=== PATIENT | female | born 1955 | race Caucasian/White ===

== ENCOUNTER 2024-04-19 09:08 | Outpatient (REF) | payer MEDICARE, OTHER, SELFPAY ==
[2024-04-19 14:24] LABS: Influenza A PCR NEGATIVE (Negative); Influenza B PCR NEGATIVE (Negative); Resp Syncy Virus RNA Qual PCR NEGATIVE (Negative); SARS COV2 PCR INHOUSE NEGATIVE (Negative)
== END 2024-04-19 09:09 | disposition home or self-care (01) ==
LOC: HO.LNP 09:08
PROVIDERS: PCP Internal Medicine; Visit Provider Physician Assistant
DX: R06.9 Unspecified abnormalities of breathing (principal)
CPT/HCPCS: 0241U; 87880; 99212

== ENCOUNTER 2024-04-19 09:08 | Outpatient (AMB) | payer MEDICARE, OTHER, SELFPAY ==
--- OUTSIDE RECORDS SUMMARY | 2024-04-19 09:28 | XMS_ITS ---
Author Name [facility] Organization Unknown History of Medication Use Medication Directions Dispensed Refills Start Date End Date [facility] sulfamethoxazole 400 mg-trimethoprim 80 mg tablet TAKE 2 TABLETS BY MOUTH EVERY 12 HOURS FOR 5 DAYS 09/19/2023 active meclizine 25 mg tablet TAKE 1 TABLET BY MOUTH 2 TIMES A DAY NEEDED FOR DIZZINESS. 09/19/2023 active nitrofurantoin monohydrate/macrocryst als 100 mg capsule TAKE 1 CAPSULE BY MOUTH EVERY 12 HOURS WITH FOOD FOR 7 DAYS 09/19/2023 active lorazepam 0.5 mg tablet TAKE 1 TABLET BY ORAL ROUTE 2 TIMES PER DAY NEEDED 09/19/2023 active Premarin 0.625 mg/gram vaginal cream APPLY 0.5 GRAM BY TOPICAL ROUTE ONCE DAILY CYCLICALLY, 3 WEEKS ON AND 1 WEEK OFF 09/19/2023 active sulfamethoxazole 800 mg-trimethoprim 160 mg tablet TAKE 1 TABLET BY MOUTH EVERY 12 HOURS FOR 5 DAYS 09/19/2023 active doxycycline hyclate 100 mg tablet TAKE 1 TABLET (100 MG) BY ORAL ROUTE EVERY 12 HOURS FOR 5 DAYS 09/19/2023 active azithromycin 250 mg tablet TAKE 2 TABLETS BY MOUTH TODAY, THEN TAKE 1 TABLET DAILY FOR 4 DAYS DIRECTED 09/19/2023 active ondansetron HCl 4 mg tablet TAKE 1 TABLET BY MOUTH 2 TIMES A DAY NEEDED FOR NAUSEA. 09/19/2023 active Kenalog 40 mg/mL suspension for injection 02/01/2023 active lidocaine (PF) 10 mg/mL (1 %) injection solution Take 2 mL by injection route. 09/08/2022 completed ondansetron 4 mg disintegrating tablet TAKE 1 TABLET BY MOUTH EVERY 8 HOURS NEEDED FOR NAUSEA 05/08/2023 active Kenalog 40 mg/mL suspension for injection Take 1 mL by injection route. 09/08/2022 completed lidocaine (PF) 10 mg/mL (1 %) injection solution 02/01/2023 active Prolia 60 mg/mL subcutaneous syringe 09/08/2022 acti ve tramadol 50 mg tablet TAKE 1 TABLET BY MOUTH EVERY 4 HOURS NEEDED FOR PAIN 05/08/2023 active fluorouracil 5 % topical cream MIX 50/50 WITH DICLOFENAC GEL AND APPLY DAILY AT BEDTIME X 7 CONSECUTIVE NIGHTS - WASH OFF IN AM 09/08/2022 completed alendronate 70 mg tablet PLEASE SEE ATTACHED FOR DETAILED DIRECTIONS 02/01/2023 active losartan 50 mg-hydrochlorothiazide 12.5 mg tablet TAKE 1/2 TAB BY MOUTH EVERY DAY 09/08/2022 active Asprin Ec Low Dose 81 mg tablet,delayed release Take 1 tablet every day by oral route. 02/01/2023 active lorazepam 1 mg tablet TAKE 1 TABLET BY MOUTH 30 MINUTES BEFORE MRI 09/08/2022 completed hydroxyurea 500 mg capsule TAKE 3 CAPSULES BY MOUTH EVERY DAY 09/08/2022 active diclofenac 1 % topical gel MIX WITH THE FLUOURACIL 50/50 AND APPLY TO AFFECTED AREAS AT BEDTIME WASH OFF IN AM X 7DAYS TO FACE 09/08/2022 completed simvastatin 20 mg tablet TAKE 1 TABLET BY MOUTH EVERY DAY IN THE EVENING 09/08/2022 active amoxicillin 500 mg capsule TAKE 4 PILLS ONE HOUR PRIOR TO DENTAL WORK. 09/08/2022 active Eliquis 2.5 mg tablet TAKE 1 TABLET BY MOUTH TWICE A DAY FOR BLOOD CLOT PREVENTION 05/08/2023 active Problems Problem Status Onset Date Problem Type Date of Resoluti on Source Osteoarthritis of right knee joint active 2022-09-05 ProblemAct [facility] Pain of right knee joint active 2023-05-06 ProblemAct [facility] Osteoarthritis of left knee joint active 2022-09-05 ProblemAct [facility] Pain of left knee joint active 2023-05-06 ProblemAct [facility]
--- NOTE | 2024-04-19 09:30 | MHC.OFFWIV ---
Intake Vital Signs 04/19/24 09:32 Height 5 ft 9 in Weight 197 lb BMI 29.1 BP 154/90 H Blood Pressure Location Rt brachial Position Sitting Pulse 82 Pulse Source Pulse Oximeter Temp 98.0 F Temp Source Oral Pulse Oximetry (%) 97 Oxygen Delivery Method Room Air Intake Visit Reasons: EP sore throat, ears, chest heavyness Allergies gabapentin Allergy (Unknown, Verified 04/19/24 09:36) insomnia amoxicillin [Augmentin] Adverse Reaction (Unknown, Verified 04/19/24 09:36) rash clavulanic acid [Augmentin] Adverse Reaction (Unknown, Verified 04/19/24 09:36) rash nitrofurantoin Adverse Reaction (Verified 04/19/24 09:36) eye swells Erythromycin Adverse Reaction (Unknown, Uncoded 04/19/24 09:36) nausea and vomiting keflex Adverse Reaction (Uncoded 04/19/24 09:36) eye itchy HPI HPI Comments History of Present Illness Details Patient is a 68yo F who presents with URI Last onset + cough, ear pain; R side, ST and headache She said everyday she wakes up and feels worse Pt states chest feels heavy; + able to take a deep breath She denies fever but + chills previously She tried tylenol for headache and used OTC Robitussin yesterday No shortness or breath or dizziness Review of Systems Const Denies chills, Denies fever(s) and Reports headache(s) Eyes Denies blurry vision ENT Reports otalgia, Reports headache(s), Reports nasal congestion, Reports nasal discharge, Reports sore throat and Denies throat swelling Card Denies chest pain, Denies syncope and Denies dyspnea Resp Reports cough, Denies hemoptysis and Denies dyspnea Neuro Denies syncope and Reports headache(s) Aller/Immun Denies throat swelling Physical Exam Vital Signs: Last Vital Signs Temp 98.0 F 04/19/24 09:32 Pulse 82 04/19/24 09:32 BP 154/90 H 04/19/24 09:32 Pulse Ox 97 04/19/24 09:32 Oxygen Delivery Method Room Air 04/19/24 09:32 BMI result Body Mass Index 29.1 General: Non-toxic, NAD. Speaking full sentences. Skin: Warm dry throughout Eye: EOMI HENT: Airway patent. Uvula midline. No pharyngeal erythema or edema. No MANAGER OF TRANSPORTATION. Bilateral canals clear. Slight fluid behind R TM but TM non-erythematous, non-bulging. No TM perforation or hemotympanum noted. Respiratory: CTA bilaterally. No wheezes, rales or rhonchi. + dry cough on exam Cardiac: RRR. No murmur MSK: Full ROM extremities. Neurology:Alert. No aphasia or facial droop. Gait without abnormality Psych: Good mood and affect Results AMB Rapid Strep AMB Rapid Strep Negative Last Edit by Veda Hood CMA on 04/19/24 09:55 Results Reviewed Results Reviewed: Laboratory Last Values Strep Scn [facility] Clinic Negative 04/19/24 09:54 Assessment & Plan Assessment & Plan (1) Upper respiratory infection: Code(s): J06.9 - Acute upper respiratory infection, unspecified Qualifiers: URI type: unspecified viral URI Qualified Code(s): J06.9 - Acute upper respiratory infection, unspecified Plan: Patient seen and evaluated. Strep negative Lungs CTA Tessalon for cough COVID/Flu/RSV ordered Patient gave verbal understanding and had no additional questions or concerns at time of discharge All questions answered Orders: Orders AMB Rapid Strep Screen Today Z13.9 - Encounter for screening, unspecified SARS-CoV2/FLU/RSV Today J06.9 - Acute upper respiratory infection, unspecified Medications: New benzonatate 200 mg PO BID-TID PRN 20 caps 0RF cough Coding Level of Care Code Est Pt Level 3 (83779) Diagnoses Viral upper respiratory tract infection J06.9 URI type: unspecified viral URI
[2024-04-19 09:32] VITALS: BP 154/90; PULSE 82; TEMP 36.7; O2SAT 97; BMI 29.1
== END 2024-04-19 09:57 | disposition home or self-care (01) ==
PROVIDERS: PCP Internal Medicine; Visit Provider Physician Assistant
DX: Z13.9 Encounter for screening, unspecified (principal); J06.9 Acute upper respiratory infection, unspecified

== ENCOUNTER 2024-05-06 10:02 | Outpatient (REF) | payer MEDICARE, OTHER, SELFPAY ==
--- OUTSIDE RECORDS SUMMARY | 2024-05-06 15:24 | XMS_ITS | Data Portability ---
Author Organization [place] [facility] [place] Address [address] [place] [address] Care Team Providers Care Dye Range Feeder Name Role Phone ALEJANDRA KHOURY Primary Care Provider ALEJANDRA KHOURY Primary Care Provider [phone] Assessment Encounter Date Assessment Date Assessment LastModified by Organization Details LastModified Time 09/05/2022 09/05/2022 Pleasant 67-year-old female bilateral knee pain due to patellofemoral syndrome and osteoarthritis. I had a discussion with the patient regarding management at today's visit. She for bilateral cortisone injections of the knees. After verbal consent was obtained. The procedures were carried out bilaterally and independently. She tolerated the procedures well. Aftercare instructions were discussed in detail. Indirect care and treatment in conjunction with Dr. Saucedo Additional treatment plan discussed with the patient in detail included the following; - Provider focused nonsteroidal anti-inflammatory regimen (discussed were the pros, cons, benefits and risks as well as any black box warnings) in patients over 60 years old they should be very cautious in taking these medications due to potential decreased kidney function and or elevated blood pressure. - Analgesic pain medication for pain suppression (discussed were the pros, cons, benefits and risks as well as any black box warnings) - The use of topical pain relieving medication were discussed - The use of ice to decrease inflammation and pain - The use of assistive ambulatory devices for ambulation and fall prevention - Formal specific guided physical therapy program I reviewed my findings at length with the patient today. ? ? ?We discussed the nature and etiology of this problem along with current treatment options. We discussed the expected course and outcomes and what to expect. We also discussed risks and benefits. ? ? ? All of their questions were answered today, and there was exhibited understanding and comprehension of all that was discussed. Time Spent: 10 minutes were spent reviewing previous imaging and charting. ? ? ?10 minutes were spent obtaining patient history. ? ? ?5 minutes were spent on physical exam. ? ? ?5? ? ?minutes were spent explaining diagnosis and assessment. Today's documentation was made using voice recognition software. This note may contain grammatical errors secondary to the software. Not available 09/05/2022 07:42:49 01/28/2023 01/28/2023 Pleasant 67-year-old female with degenerative arthritis of both knees for which she gets good relief with cortisone injection. She is not interested in alternatives such as surgery. She opted for bilateral injections of the knees at today's visit. After verbal consent was granted by patient. The procedures were carried out. She tolerated this well. Aftercare instructions were discussed in detail. Like to see her back in 3 months time for repeat clinical exam. Should her symptoms not improve or worsen she should contact my office. She agrees with above-noted plan I did review her radiographs with her in detail. Indirect care and treatment in conjunction with Dr. Saucedo Additional treatment plan discussed with the patient (only initiated if in boldface font) otherwise not applicable. Treatment may include the following; - Provider focused nonsteroidal anti-inflammatory regimen (discussed were the pros, cons, benefits and risks as well as any black box warnings) in patients over 60 years old they should be very cautious in taking these medications due to potential decreased kidney function and or elevated blood pressure. - Analgesic pain medication for pain suppression (discussed were the pros, cons, benefits and risks as well as any black box warnings) - The use of topical pain relieving medication were discussed - The use of ice to decrease inflammation and pain - The use of assistive ambulatory devices for ambulation and fall prevention - Formal specific guided physical therapy program I reviewed my findings at length with the patient today. ? ? ?We discussed the nature and etiology of this problem along with current treatment options. We discussed the expected course and outcomes and what to expect. We also discussed risks and benefits. ? ? ? All of their questions were answered today, and there was exhibited understanding and comprehension of all that was discussed. Time Spent: 10 minutes were spent reviewing previous imaging and charting. ? ? ?10 minutes were spent obtaining patient history. ? ? ?5 minutes were spent on physical exam. ? ? ?5? ? ?minutes were spent explaining diagnosis and assessment. Today's documentation was made using voice recognition software. This note may contain grammatical errors secondary to the software. Not available 01/29/2023 08:10:11 05/06/2023 05/06/2023 Pleasant 67-year-old female with degenerative arthritis of both knees for which she gets good relief with cortisone injection. She opted for bilateral injections of the knees at today's visit. After verbal consent was granted by patient. The procedures were carried out. She tolerated this well. Aftercare instructions were discussed in detail. Will see her back in 3 months time for repeat clinical exam.. Should her symptoms not improve or worsen she should contact my office. She agrees with above-noted plan I did review her radiographs with her in detail. Patient was seen and evaluated by Amandeep Shaw PA-C in indirect conjuction with Documenting Provider: Jean Saucedo MD . He/She agrees with history, physical examination, tests/diagnostic imaging, and treatment plan. Additional treatment plan discussed with the patient (only initiated if in boldface font) otherwise not applicable. Treatment may include the following; - Provider focused nonsteroidal anti-inflammatory regimen (discussed were the pros, cons, benefits and risks as well as any black box warnings) in patients over 60 years old they should be very cautious in taking these medications due to potential decreased kidney function and or elevated blood pressure. - Analgesic pain medication for pain suppression (discussed were the pros, cons, benefits and risks as well as any black box warnings) - The use of topical pain relieving medication were discussed - The use of ice to decrease inflammation and pain - The use of assistive ambulatory devices for ambulation and fall prevention - Formal specific guided physical therapy program I reviewed my findings at length with the patient today. ? ? ?We discussed the nature and etiology of this problem along with current treatment options. We discussed the expected course and outcomes and what to expect. We also discussed risks and benefits. ? ? ? All of their questions were answered today, and there was exhibited understanding and comprehension of all that was discussed. Time Spent: 10 minutes were spent reviewing previous imaging and charting. ? ? ?10 minutes were spent obtaining patient history. ? ? ?5 minutes were spent on physical exam. ? ? ?5? ? ?minutes were spent explaining diagnosis and assessment. Today's documentation was made using voice recognition software. This note may contain grammatical errors secondary to the software. Not available 05/06/2023 10:31:20 09/17/2023 09/17/2023 68-year-old fema le with osteoarthritis of bilateral knees. At present moment, her symptoms are well-controlled following a recent cortisone injection. Some of her relief may also be the result of a recent right-sided total hip replacement. We have discussed the general nature of osteoarthritis and potential future options. Recommendations are for follow-up on an as-needed basis. This patient was seen and evaluated by Amandeep Martin MS, PA-C in indirect conjunction with documenting/superv ising provider Jean Saucedo MD. He agrees with history, physical examination, tests/diagnostic imaging, and treatment plan. This document was generated using voice recognition software. As a result, there may be unintended spelling, grammatical and/or textual errors. Not available 09/17/2023 11:20:06 Plan of Treatment Reminders Order Date Submit Date Provider Last Modified By Organization Details Last Modified Time Details Appointments None recorded. Lab None recorded. Referral None recorded. Procedures None recorded. Surgeries None recorded. Imaging XR, knee, 4 or more view 2022 023 [facility], [address], [address], [place], [address], 3 12:06:13 XR, knee, 4 or more view 2022 023 [facility], [address], [address], [place], [address], 3 12:06:13 XR, knee, 4 or more view 2023 024 [email or web address] 2 [facility], [address], [address], [place], [address], 4 11:34:21 XR, knee, 4 or more view 2023 024 [email or web address] 2 [facility], [address], [place], [address], 4 11:34:21 Medication Orders Kenalog 40 mg/mL suspension for injection 2022 023 [id number], [address] [place], [address], 3 16:22:53 lidocaine (PF) 10 mg/mL (1 %) injection solution 2022 023 [place] [address] [id number], [address] [place], [address], 3 16:22:54 Kenalog 40 mg/mL suspension for injection 2022 023 [place] [address] [id number], [address] [place] [address], [address], 3 16:22:53 lidocaine (PF) 10 mg/mL (1 %) injection solution 2022 023 [place] [address] [id number], [address] [place], [address], 3 16:22:54 Kenalog 40 mg/mL suspension for injection 2022 023 [facility], [address] [place], [address], 3 12:06:13 lidocaine (PF) 10 mg/mL (1 %) injection solution 2022 023 [facility], [address] [place], [address], 3 12:06:13 Kenalog 40 mg/mL suspension for injection 2022 023 [facility], [address] [place], [address], 3 12:06:13 lidocaine (PF) 10 mg/mL (1 %) injection solution 2022 023 [id number], [address] [facility], [place], [address], 3 12:06:13 Kenalog 40 mg/mL suspension for injection 2023 024 [email or web address] Not available 4 11:26:11 lidocaine (PF) 10 mg/mL (1 %) injection solution 2023 024 [email or web address] Not available 4 11:26:11 Kenalog 40 mg/mL suspension for injection 2023 024 [email or web address] Not available 4 11:26:10 lidocaine (PF) 10 mg/mL (1 %) injection solution 2023 024 [email or web address] Not available 4 11:26:10 Patient TargetsNo targets recorded. Patient Instructions Encounter Date Encounter Id Patient Instructions Last Modified By Organization Details Last Modified Time 09/05/2022 [id number] You have been provided with a cortisone injection in order to reduce the pain and inflammation that you are experiencing. The injection consists of two medications. Cortisone (an anti-inflammatory that will take 48-72 hours to take effect) and Lidocaine (a numbing agent that will last 2-3 hours). Please note that not everyone will have a lasting response following the injection. PATIENT INSTRUCTIONS Once the Lidocaine wears off, you may have an increase in your pain. I recommend icing the affected area for 20 minutes 3-4 times per day. It is recommended that you refrain from any high level activities using the joint or limb that was injected for approximately 24-48 hours. Normal day-to-day activities are generally not a problem. POSSIBLE SIDE EFFECTS Individuals with dark complexions may experience some skin discoloration locally at the site of the injection. There is the possibility of an increase in discomfort within 48 hours following the injection. This is called a ? f lare? . To help minimize the chances of this, please see the post-injection instructions above. There is a less than 1% chance of an infection. If you notice any signs of infection (redness, warmth, drainage, fever greater than 100 degrees) please call our office or contact us through the portal [facility]ESS[facility]. Not available 09/05/2022 10:35:22 01/28/2023 [id number] You have been provided with a cortisone injection in order to reduce the pain and inflammation that you are experiencing. The injection consists of two medications. Cortisone (an anti-inflammatory that will take 48-72 hours to take effect) and Lidocaine (a numbing agent that will last 2-3 hours). Please note that not everyone will have a lasting response following the injection. PATIENT INSTRUCTIONS Once the Lidocaine wears off, you may have an increase in your pain. I recommend icing the affected area for 20 minutes 3-4 times per day. It is recommended that you refrain from any high level activities using the joint or limb that was injected for approximately 24-48 hours. Normal day-to-day activities are generally not a problem. POSSIBLE SIDE EFFECTS Individuals with dark complexions may experience some skin discoloration locally at the site of the injection. There is the possibility of an increase in discomfort within 48 hours following the injection. This is called a ? f lare? . To help minimize the chances of this, please see the post-injection instructions above. There is a less than 1% chance of an infection. If you notice any signs of infection (redness, warmth, drainage, fever greater than 100 degrees) please call our office or contact us through the portal JESSICA. Not available 01/28/2023 14:00:06 4 view x-ray of both knees reveals the following; Right knee moderate to severe grade 3 degenerative changes predominantly in the medial compartment with subchondral sclerosis and osteophyte formation as well as patellofemoral joint space narrowing without acute bony abnormality Left knee reveals moderate degenerative change predominantly in the medial compartment grade 2/3 with subchondral sclerosis and osteophyte formation with moderate severe patellofemoral joint space narrowing without acute bony abnormality. Not available 01/29/2023 08:10:15 05/06/2023 [id number] You have been provided with a cortisone injection in order to reduce the pain and inflammation that you are experiencing. The injection consists of two medications. Cortisone (an anti-inflammatory that will take 48-72 hours to take effect) and Lidocaine (a numbing agent that will last 2-3 hours). Please note that not everyone will have a lasting response following the injection. PATIENT INSTRUCTIONS Once the Lidocaine wears off, you may have an increase in your pain. I recommend icing the affected area for 20 minutes 3-4 times per day. It is recommended that you refrain from any high level activities using the joint or limb that was injected for approximately 24-48 hours. Normal day-to-day activities are generally not a problem. POSSIBLE SIDE EFFECTS Individuals with dark complexions may experience some skin discoloration locally at the site of the injection. There is the possibility of an increase in discomfort within 48 hours following the injection. This is called a ? f lare? . To help minimize the chances of this, please see the post-injection instructions above. There is a less than 1% chance of an infection. If you notice any signs of infection (redness, warmth, drainage, fever greater than 100 degrees) please call our office or contact us through the portal JESSICA. Not available 05/06/2023 10:29:50 X-rays of both knees reveal bilateral degenerative joint disease predominantly in the medial and patellofemoral compartments no acute bony abnormality. Not available 05/06/2023 10:46:13 09/17/2023 [id number] {{2 3 4 5 6 7 8* 9 }} view X-ray study obtained during today's office encounter show evidence of {{mild moderate* s evere}} {{right left bilat eral*}} {{hip knee*}} osteoarthritis. There is joint space narrowing, subchondral sclerosis and marginal osteophytosis. Kellgren-Chintan grade {{0 1 2* 3 4}}. No evidence of acute fracture or osteolytic findings. Not available 09/17/2023 11:19:10 Reason for Referral None Reported. Problems Name Problem SNOMED Code Status Onset Date Resolution Date Notes Provider Name and Address Organization Details Recorded Time Pain of right knee joint 6637876425805 00 Active 2023 AMANDEEP SHAW PA-C [address] [facility], [place], [address], [place] [facility] 4 10:29:48 Pain of left knee joint 9327760052440 07 Active 2023 AMANDEEP SHAW PA-C [address], [place], [address], [place] [facility], [facility] 4 10:29:48 Osteoarthri tis of right knee joint 5917750718562 00 Active 2022 AMANDEEP SHAW PA-C [address], [place], [address], [place] [facility] 3 10:34:27 Osteoarthri tis of left knee joint 4752164403587 09 Active 2022 AMANDEEP SHAW PA-C [address], [place], [address], [place] [facility] 3 10:34:34 Problem Notes None recorded. Procedures Surgical History Date Name Laterality Status Provider Name and Address Organization Details Recorded Time 024 Knee Joint/Bursa Asp & Inj completed AMANDEEP SHAW PA-C [address], [place], [address], [place] [facility] 05/06/2023 10:30:02 023 Knee Joint/Bursa Asp & Inj completed AMANDEEP SHAW PA-C [address], [place], [address], [place] [facility] 01/28/2023 14:00:20 023 Knee Joint/Bursa Asp & Inj completed AMANDEEP SHAW PA-C [address], [place], [address], [place] [facility] 09/05/2022 07:41:48 cholecystectomy completed Danielle Ram[address]rez [place] [facility], P 09/05/2022 10:15:43 Hernia Repair completed Danielle Ramírez [place] [facility] 09/05/2022 10:15:59 Imaging Results None recorded. Procedure Notes None recorded. Medical Equipment None Reported. Allergies No known drug allergies Medications Name Sig Start Date Stop Date Status Note LastModified by Organization Details LastModified Time amoxicillin 500 mg capsule TAKE 4 PILLS ONE HOUR PRIOR TO DENTAL WORK. active Not Available Not Available No t Available hydroxyurea 500 mg capsule TAKE 3 CAPSULES BY MOUTH EVERY DAY active Not Available Not Available No t Available azithromyci n 250 mg tablet TAKE 2 TABLETS BY MOUTH TODAY, THEN TAKE 1 TABLET DAILY FOR 4 DAYS DIRECTED 09/16 completed Not Available Not Available Not Available sulfamethox azole 400 mg-trimetho prim 80 mg tablet TAKE 2 TABLETS BY MOUTH EVERY 12 HOURS FOR 5 DAYS 09/16 completed Not Available Not Available Not Available ondansetron HCl 4 mg tablet TAKE 1 TABLET BY MOUTH 2 TIMES A DAY NEEDED FOR NAUSEA. active Not Available Not Available No t Available alendronate 70 mg tablet PLEASE SEE ATTACHED FOR DETAILED DIRECTION S active Not Available Not Available No t Available fluorouraci l 5 % topical cream MIX 50/50 WITH DICLOFENA C GEL AND APPLY DAILY AT BEDTIME X 7 CONSECUTI VE NIGHTS - WASH OFF IN AM 01/28 completed Not Available Not Available Not Available sulfamethox azole 800 mg-trimetho prim 160 mg tablet TAKE 1 TABLET BY MOUTH EVERY 12 HOURS FOR 5 DAYS 09/16 completed Not Available Not Available Not Available tramadol 50 mg tablet TAKE 1 TABLET BY MOUTH EVERY 4 HOURS NEEDED FOR PAIN 09/16 completed Not Available Not Available Not Available Kenalog 40 mg/mL suspension for injection Take 1 mL by injection route. 2023 active Not Available Not Available Not Avai lable lorazepam 0.5 mg tablet TAKE 1 TABLET BY ORAL ROUTE 2 TIMES PER DAY NEEDED active Not Available Not Available No t Available meclizine 25 mg tablet TAKE 1 TABLET BY MOUTH 2 TIMES A DAY NEEDED FOR DIZZINESS . active Not Available Not Available No t Available simvastatin 20 mg tablet TAKE 1 TABLET BY MOUTH EVERY DAY IN THE EVENING active Not Available Not Available No t Available lorazepam 1 mg tablet TAKE 1 TABLET BY MOUTH 30 MINUTES BEFORE MRI 01/28 completed Not Available Not Available Not Available losartan 50 mg-hydrochl orothiazide 12.5 mg tablet TAKE 1/2 TAB BY MOUTH EVERY DAY active Not Available Not Available No t Available ondansetron 4 mg disintegrat ing tablet TAKE 1 TABLET BY MOUTH EVERY 8 HOURS NEEDED FOR NAUSEA active Not Available Not Available No t Available doxycycline hyclate 100 mg tablet TAKE 1 TABLET (100 MG) BY ORAL ROUTE EVERY 12 HOURS FOR 5 DAYS 09/16 completed Not Available Not Available Not Available Asprin Ec Low Dose 81 mg tablet,trisha yed release Take 1 tablet every day by oral route. active Not Available Not Available No t Available Premarin 0.625 mg/gram vaginal cream APPLY 0.5 GRAM BY TOPICAL ROUTE ONCE DAILY CYCLICALL Y, 3 WEEKS ON AND 1 WEEK OFF active Not Available Not Available No t Available nitrofurant oin monohydrate /macrocryst als 100 mg capsule TAKE 1 CAPSULE BY MOUTH EVERY 12 HOURS WITH FOOD FOR 7 DAYS 09/16 completed Not Available Not Available Not Available lidocaine (PF) 10 mg/mL (1 %) injection solution Take 2 mL by injection route. 2023 active Not Available Not Available Not Avai lable diclofenac 1 % topical gel MIX WITH THE FLUOURACI L 50/50 AND APPLY TO AFFECTED AREAS AT BEDTIME WASH OFF IN AM X 7DAYS TO FACE 01/28 completed Not Available Not Available Not Available Prolia 60 mg/mL subcutaneou s syringe 09/16 completed Not Available Not Available Not Available Eliquis 2.5 mg tablet TAKE 1 TABLET BY MOUTH TWICE A DAY FOR BLOOD CLOT PREVENTIO N 09/16 completed Not Available Not Available Not Available Vitals Date Recorded Body height Body mass index (BMI) Body weight Provider Name and Address Organization Details Last Updated DateTime 09/05/2022 175.26 cm 30.6 kg/m2 99037.62 g Danielle Ramírez [facility], [facility] 09/05/2022 10:14:04 Date Recorded Body height Provider Name an d Address Organization Details Last Updated DateTime 01/28/2023 175.26 cm Senia Wilkins [facility] 01/28/2023 16:23:24 Social History Question Answer Notes LastModified by Organizat ion Details LastModified Time Tobacco Smoking Status Former Smoker Danielle Ramírez null, [facility] 09/05/2022 10:14:41 What Is Your Level Of Alcohol Consumption? Occasional Information not available 09/05/2022 How Many Times Per Week Do You Consume Alcohol? 3-4 Times Per Week Information not available 09/05/2022 When Did You Quit Smoking? 16+yearssingino sanchez Information not available 09/05/2022 Do You Use Any Illicit Or Recreational Drugs? No Information not available 09/05/2022 Do You Or Have You Ever Used Any Other Forms Of Tobacco Or Nicotine? No Information not available 09/05/2022 Sex: Unknown Functional Status None recorded. Mental Status None recorded. Family History Relationship Description Onset Age of this Age Resolved Age Notes LastModified by Organization Details LastModified Time Father Family history of malignant neoplasm [email or web address] Not available 08/12 10:15:11 Mother Family history of malignant neoplasm [email or web address] Not available 08/12 10:15:20 Sister Family history of malignant neoplasm [email or web address] Not available 08/12 10:15:26 Medical History Condition Response Osteopenia Y Hypertension Y Gynecological HistoryNo gynecological history recorded. Obstetrics History GPAL:G 0 P 0 0 0 0 Past Encounters Encounter ID Performer Location Encounter Start Date Encounter Closed Date Diagnosis/Indication Diagnosis SNOMED-CT Code Diagnosis ICD10 Code Diagnosis Note [id number] MD SWETHA Mariscaledda [address] [address] 09/05/2022 10:04:15 09/05/2022 10:29:30 Osteoarthritis of right knee joint [id number] 60081 M17.11 Osteoarthr itis of left knee joint 8483481120 43295 M17.12 [id number] MD SWETHA Mariscal 299 [facility] [address] [place] [address] 01/28/2023 13:27:47 01/28/2023 14:15:05 Pain of right knee joint 7001607641 67817 M25.561 Pain of le ft knee joint 6680952425 40287 M25.562 Osteoarthr itis of left knee joint 5458346721 76847 M17.12 Osteoarthr itis of right knee joint 2785599693 83332 M17.11 [id number] MD SWETHA [place] [address] [facility] [address] [facility] [place] [address] 05/06/2023 10:14:49 05/06/2023 10:45:27 Osteoarthritis of left knee joint 4923162146 85865 M17.12 Pain of ri ght knee joint 1294745281 61308 M25.561 Pain of le ft knee joint 6414791182 56914 M25.562 Osteoarthr itis of right knee joint 3922939205 65253 M17.11 [id number] MD SWETHA Mariscal [address] [facility] [address] [place] [place] [address] 09/17/2023 10:54:23 09/17/2023 11:34:21 Osteoarthritis of right knee joint [id number] 69155 M17.11 Osteoarthr itis of left knee joint [id number] M17.12 Health Concerns Section Related Observation LastModified by Organization Detai ls LastModified Time None Recorded Concern Status LastModified by Organization Details LastModified Time None Recorded Advance Directives Directive None Recorded Payers Encounter Date Sequence Insurance Name Policy Number Policy Huddleston Covered Member ID Huddleston Member ID Guarantor Name 09/05/2022 1 [facility] [id number] Tori Noonan [id number] Tori Noonan 01/28/2023 1 MEDICARE B-[place]: [facility] Tori Noonan [id number] Tori Noonan 01/28/2023 2 [facility] [id number] Zulema Noonan [id number] Tori Noonan 05/06/2023 1 MEDICARE B-[place]: [facility] Tori Noonan [id number] Tori Noonan 05/06/2023 2 [facility] [id number] Zulema Noonan [id number] Tori Noonan Notes Date Note Type Note Provider Name and Address Organization Details Recorded Time 09/05/2022 text/html Assessment and P presley: Date of visit 02/21/2022 (epic)Diagnosis #1 bilateral patellofemoral syndrome. I had a lengthy discussion with patient current regimen. She opted for cortisone injections. After this was performed the procedure was tolerated very well with the patient aftercare instructions were discussed in detail. Follow-up visit 3 months time for repeat clinical exam however she states she will call us if her symptoms return. Should her symptoms not improve or worsen anyway she is instructed to contact my office. She agrees with the above-noted plan.? ? ?HPI:Patient states she had notable improvement in her symptoms with cortisone injections. However they have since worn off. She is here for follow-up evaluation for bilateral knee pain which resides underneath the patella with certain movements and bending and prolonged sitting. She is interested in repeat cortisone injections. Denies any interval change in history. AMANDEEP SHAW PA-C [address] [facility],[address], [place], [address], [place] - [facility] 09/05/2022 10:35:53 01/28/2023 text/html HPI:Patient stat es she had notable improvement in her symptoms with cortisone injections. However they have since worn off. She is here for follow-up evaluation for bilateral knee pain which resides underneath the patella with certain movements and bending and prolonged sitting. She states her last injections on 09/05/2022 gave her good relief. 4 view x-ray of both knees reveals the following; Right knee moderate to severe grade 3 degenerative changes predominantly in the medial compartment with subchondral sclerosis and osteophyte formation as well as patellofemoral joint space narrowing without acute bony abnormality Left knee reveals moderate degenerative change predominantly in the medial compartment grade 2/3 with subchondral sclerosis and osteophyte formation with moderate severe patellofemoral joint space narrowing without acute bony abnormality. AMANDEEP SHAW PA-C [address], [place], [address], [place] - [facility], [facility] 01/29/2023 08:11:30 05/06/2023 text/html Pleasant 67-year -old female degenerative joint disease of both knees had cortisone injections last on 01/28/2023 which gave good relief up until recently. She is not interested in surgery here for follow-up eval with possible cortisone injections per request of patient. She recently underwent right total hip arthroplasty in [place] by Dr. Oh on 03/25/2023 for which she is doing well she is cleared to have her cortisone injections by her surgeon. AMANDEEP SHAW PA-C [address] [facility] [address], [place], [address], [facility] - [facility] 05/06/2023 10:46:42 09/17/2023 text/html 68-year-old fema mil presents for recheck of bilateral knees. Notably, she had her right hip replaced recently. As a result she is no longer having any right hip pain and has no thigh pain. She also feels as though some of her knee pain may be resolved as a result of hip replacement surgery as well. She recently underwent a cortisone injection to the right knee. This was approximately 3 months ago. At present moment neither knee is bothering her at all. She is exercising with walking and a rebounder. She is not describing for me any knee locking, dysfunction, or instability. Overall, she is in a good place with the knees right now. AMANDEEP MARTIN PA-C [address] [facility] [address], [place], [address], [place] - [facility], [facility] 09/17/2023 11:20:27 OBGyn Episode No OBEpisode recorded.
--- OUTSIDE RECORDS SUMMARY | 2024-05-06 15:24 | XMS_ITS | Clinical Summary ---
Author Organization [address] Address [address] [place] [address] Phone Care Team Providers Care Semiconductor Package Symbol Stamper Name Role Phone Ann Marie Koehler MD Primary Care Provider [phone] Allergies No known active allergies Social History Tobacco Use Types Packs/Day Years Used Date Smoking Tobacco: Never Assessed Interpersonal Safety Answer Date Record ed Is there anyone in your life that is hurting or threatening you in anyway? no 12/11/2023 Physical Indicators of Abuse No evidence of phys ical abuse 12/11/2023 Comments Unknown Sex and Gender Information Value Date Recorded Sex Assigned at Not on file Legal Sex Female 1:27 PM EDT Gender Identity Not on file Sexual Orientation Not on file Last Filed Vital Signs Vital Sign Reading Time Taken Comments Blood Pressure 140/81 12/11/2023 3:01 PM EDT Simultaneous filing. User may not have seen previous data. Pulse 65 12/11/2023 3:01 PM EDT Simultaneous filing. User may not have seen previous data. Temperature 36 ??C (96.8 ??F) 12/11/2023 1:3 8 PM EDT Respiratory Rate 14 12/11/2023 3:01 PM EDT Simultaneous filing. User may not have seen previous data. Oxygen Saturation 96% 12/11/2023 3:0 1 PM EDT Simultaneous filing. User may not have seen previous data. Inhaled Oxygen Concentration - - Weight 92 kg (202 lb 13.2 oz) 12/11/2023 1:38 PM EDT Height - - Body Mass Index - - Plan of Treatment Health Maintenance Due Date Last Done Comments HIV screening 1970 Hepatitis C screening 06/17/1975 Tetanus adult (Td q 10,TDAP once) 1977 Breast cancer screening 1997 Lipid disorder screening 1997 Colon cancer screening, Colonoscopy 2002 Shingles vaccine (Shingrix) (1 of 2 - Shingrix (RZV) 2 Dose Standard Series) 06/17/2007 Osteoporosis screening (bone density) 2022 Pneumo Vaccine 65+ (2 of 2 - PCV) 2022 02/21/2019 Influenza vaccine 11/12/2023 01/29/2012 Covid-19 vaccine series (3 - season) 2023 06/24/2020, 05/27/2020 Diabetes screening 12/10/2026 12/11/2023 RSV Discussion (1 - 1-dose 75+ series) 2032 Cervical cancer screening Discontinued Meningococcal Vaccine Aged Out No shana tereza eligible based on patient's age to complete this topic Procedures Procedure Name Priority Date/Time Associated Diagnosis Comments COMPREHENSIVE METABOLIC PANEL STAT 12/11/2023 1:49 PM EDT from Last 3 Months or Most Recently Relevant to Health Maintenance Results * (ABNORMAL) Comprehensive metabolic panel (12/11/2023 1:49 PM EDT) Sodium 137 136 - 145 mmol/L 12/11/2023 2:24 PM [facility] Potassium 3.6 3.5 - 5.1 mmol/L 12/11/2023 2:24 PM [facility] Chloride 105 98 - 107 mmol/L 12/11/2023 2:24 PM [facility] CO2 23 21 - 32 mmol/L 12/11/2023 2:24 PM [facility] Anion Gap 9 5 - 15 mmol/L 12/11/2023 2:24 PM [facility] Glucose 108 65 - 110 mg/dL 12/11/2023 2:24 PM [facility] Comment: Non-fasting: ??65-110 mg/dL Fasting (minimum 6 hrs): ??65-99 mg/dL BUN 25(H) 7 - 18 mg/dL 12/11/2023 2:24 PM [facility] Creatinine 0.69 0.55 - 1.02 mg/dL 12/11/2023 2:24 PM [facility] Calcium 9.4 8.5 - 10.1 mg/dL 12/11/2023 2:24 PM [facility] Total Protein 7.6 6.4 - 8.2 g/dL 12/11/2023 2:24 PM [facility] Albumin 4.3 3.4 - 5.0 g/dL 12/11/2023 2:24 PM [facility] Globulin 3.3 2.5 - 5.0 g/dL 12/11/2023 2:24 PM [facility] Total Bilirubin 0.8 0.2 - 1.0 mg/dL 12/11/2023 2:24 PM [facility] Comment:Use of this assay is not recommended for patients undergoing treatment with Eltrombopag due to the potential for falsely elevated results. Alkaline Phosphatase 61 45 - 117 U/L 12/11/2023 2:24 PM [facility] Alanine Aminotransferase (ALT) 28 12 - 78 U/L 12/11/2023 2:24 PM [facility] Aspartate Aminotransferase (AST) 24 15 - 37 U/L 12/11/2023 2:24 PM [facility] eGFR (Creatinine) >60 >=60 mL/min/1. 73m2 12/11/2023 2:24 PM [facility] Comment: [facility] utilizes CKD-EPI Creatinine 2020 to report eGFR. Values < 60 mL/min/1.73 m2 may indicate CKD if present for more than three months AND creatinine is at steady state. The eGFR provides a rough estimate of kidney function. For further guidance, please refer to the CKD: Adult Mission Systems Engineer Signature pathway. Blood Venipuncture / Unknown 12/11/2023 1:49 PM EDT 12/11/2023 1:56 PM EDT us Sam [facility] LAB BLOOD ORDERAB[place] [address], [facility] [phone] from Last 3 Months or Most Recently Relevant to Health Maintenance Insurance MEDICARE COMMERCIAL GENERIC MEDICARE COMMERCIAL GENERIC MEDICARE COMMERCIAL GENERIC Care Teams Semiconductor Package Symbol Stamper Relationship Specialty Start Date End Date Ann Marie Koehler MD [facility] [place] [address] PCP - General Internal Medicine 12/11/23
--- OUTSIDE RECORDS SUMMARY | 2024-05-06 15:24 | XMS_ITS | Clinical Summary ---
Author Organization [facility] Address [address] [place] [address] Care Team Providers Care Intensive Care Nurse Name Role Phone Vanessa Escobar DO Primary Care Provider [phone] Allergies Active Allergy Reactions Criticality Noted Date Comments Erythromycin 11/07/2021 Other reaction(s): nausea Oxycodone-Acetaminophen Other (See Comments) Medications Medication Sig Dispensed Refills Start Date End Date Status hydroxyurea (HYDREA) 500 MG capsule Take 1,500 mg by mouth daily. 4 01/03/2018 Active aspirin EC 81 MG tablet Take 81 mg by mouth daily. 0 Active simvastatin (ZOCOR) tablet 20 mg Take 1 tablet (20 mg total) by mouth every evening. 90 tablet 2 02/21/2019 Active LORazepam (ATIVAN) 0.5 MG tabletIndications: Anxiety state Take 1 tablet (0.5 mg total) by mouth as needed. 20 tablet 0 06/28/2019 Active Additional Information Patient not taking.Reported on 08/07/2021 Drysol 20 % external solution APPLY TO AFFECTED AREA BY TOPICAL ROUTE DAILY FOR 30 DAYS 0 05/12/2021 Active atorvastatin (LIPITOR) tablet 10 mg 0 Refills, Maintenance 0 01/30/2012 Active azithromycin (ZITHROMAX) 250 MG tablet TAKE 2 TABLETS BY MOUTH TODAY, THEN TAKE 1 TABLET DAILY FOR 4 DAYS 0 05/18/2021 Active denosumab (PROLIA) injection 60 mg/mL See Instructions, 1 mL Subcutaneous Injection Every 6 months, # 1 each, 2 Refills, Maintenance, 04/19/20 15:36:00 EST, Solution, [facility], 175, cm, 04/17/20 10:36:00 EST, Height, 96.6, kg, 02/23/20 10:44:00 EST, Dry Weight 0 04/19/2020 Active erythromycin (ROMYCIN) ophthalmic ointment APPLY 1 APPLICATION TO RIGHT EYE DAILY 10 DAYS 0 05/18/2021 Active estradiol (ESTRACE VAGINAL) 0.1 MG/GM vaginal cream Place 1 g vaginally. 0 11/05/2016 A ctive losartan-hydrochlo rothiazide (HYZAAR) 50-12.5 MG per tablet Take 0.5 tablets by mouth daily. 0 06/25/2021 Active tretinoin (RETIN-A) 0.05 % cream 0 08/05/2021 Active Active Problems Problem Noted Date Diagnosed Date Anxiety state 02/09/2018 Thrombocytopenia Hyperlipidemia Resolved Problems Problem Noted Date Diagnosed Date Resolved Date Fatigue fracture of vertebra , sacral and sacrococcygeal region, subsequent encounter for fracture with delayed healing 04/04/20182019 Sacroiliitis, not elsewhere classified 03/22/2018 06/28/2019 Immunizations Name Administration Dates Next Due Pneumococcal Polysaccharide PPSV23 02/21/2019 Family History Medical History Relation Name Comments Cancer Father Heart disease Father Cancer Maternal Aunt 1 breast Cancer Maternal Aunt 2 breast Cancer Mother lung Heart disease Mother Cancer Sister breast Relation Name Status Comments Cousin Alive Father Maternal Aunt 1 Maternal Aunt 2 Maternal Grandfather Maternal Grandmother Mother Paternal Grandfather Paternal Grandmother Sister Alive Social History Tobacco Use Types Packs/Day Years Used Date Smoking Tobacco: Former Smokeless Tobacco: Never Alcohol Use Standard Drinks/Week Comments Yes 3 (1 standard drink = 0.6 oz pur e alcohol) Sex and Gender Information Value Date Recorded Sex Assigned at Female 04/20/2018 10:38 AM EST Gender Identity Female 04/20/2018 10:38 AM EST Sexual Orientation Straight 04/20/2018 10 :38 AM EST Job Start Date Occupation Industry Not on file Not on file Not on file Last Filed Vital Signs Vital Sign Reading Time Taken Comments Blood Pressure 144/90 06/28/2019 2:34 PM EDT Pulse 96 06/28/2019 2:34 PM EDT Temperature 36.5 ??C (97.7 ??F) 10/28/2019 7:55 AM ED T Respiratory Rate 16 02/21/2019 11:27 AM EST Oxygen Saturation 97% 06/28/2019 2:34 PM EDT Inhaled Oxygen Concentration - - Weight 93.9 kg (207 lb) 08/07/2021 9:33 AM EDT Height 175.3 cm (5' 9 ) 08/07/2021 9:33 AM EDT Body Mass Index 30.57 08/07/2021 9:33 AM EDT Plan of Treatment Health Maintenance Due Date Last Done Comments Hepatitis C Screening 1957 Depression Screening 1969 Preventative Health Evaluation 06/17/1975 Shingrix-Zoster Vaccine (1 of 2) 06/17/2007 Pneumococcal Vaccine (2 of 2 - PCV) 02/22/2020 02/21/2019 BMI Counseling 06/27/2020 06/28/2019, 02/11, 05/26/2018, Additional history exists Breast Cancer Screening (Mammogram) 11/25/2020 11/25/2018, 04/11/2015 Colon Cancer Screening (Colonoscopy) 12/31/2020 12/31/2010 Fall Risk Assessment 2022 Osteoporosis Screening (DEXA Scan) 2022 COVID-19 Vaccine (2 - season) 2023 05/27/2020 Influenza Vaccine (#1) 2023 01/29/2012 DTap / Tdap / Td (2 - Td or Tdap) 01/06/2029 01/06/2019 RSV Adult > 60+ Yrs or (1 - 1-dose 75+ series) 2032 Hepatitis B Vaccines Aged Out No long er eligible based on patient's age to complete this topic RSV Ped < 20 months Aged Out No longe r eligible based on patient's age to complete this topic Insurance Payer Benefit Plan / Group Subscriber ID Effective Dates Phone Address [facility] [id number] 2018-Present [address] [facility] [address] [place] [address] HMO Care Teams Intensive Care Nurse Relationship Specialty Start Date End Date Vanessa Escobar DO PCP - General Family Medicine 02/03/18
--- OUTSIDE RECORDS SUMMARY | 2024-05-06 15:24 | XMS_ITS | Data Portability ---
Author Organization [place] - [facility], Allergy Address [address] [address] Care Team Providers Care Architectural Designer Name Role Phone REJI IGLESIASANNE Primary Care Provider [phone] Assessment Encounter Date Assessment Date Assessment LastModified by Organization Details LastModified Time 03/07/2024 03/07/2024 68-year-old female presents for evaluation of sinuses, reporting 2-3 infections per year. Currently asymptomatic. Physical exam unrevealing. Today we reviewed that most sinus infections are actually viral in origin. Recommend that when she becomes symptomatic, she initiate distilled saline irrigations and fluticasone nasal spray. Mikey Med rivet hammer machine operator provided today. We discussed she may benefit from utilizing the crossed hand application technique as she has a history convincing for eustachian tube dysfunction. All questions were answered. Patient to follow up as needed. [email or web address] Not available 03/07/2024 16:16:49 Plan of Treatment Reminders Order Date Submit Date Provider Last Modified By Organization Details Last Modified Time Details Appointments None record ed. Lab None record ed. Referral None record ed. Procedures None record ed. Surgeries None record ed. Imaging None record ed. Medication Orders None record ed. Patient TargetsNo targets recorded. Patient InstructionsNo instructions recorded. Reason for Referral None Reported. Problems Name Problem SNOMED Code Status Onset Date Resolution Date Notes Provider Name and Address Organization Details Recorded Time Recurrent acute sinusitis 049966506 Active Filemon JADE PA-C [address] [facility] [address], [place], [address], [place] - [facility] 16:14:25 Problem Notes None recorded. Medical Equipment None Reported. Medications Name Sig Start Date Stop Date Status Note LastModified by Organization Details LastModified Time amoxicillin 500 mg capsule TAKE 4 PILLS ONE HOUR PRIOR TO DENTAL WORK. active Not Available Not Available No t Available atorvastatin 40 mg tablet TAKE 1 TABLET BY MOUTH EVERY DAY active Not Available Not Available No t Available hydroxyurea 500 mg capsule TAKE 3 CAPSULES BY MOUTH EVERY DAY active Not Available Not Available No t Available azithromycin 250 mg tablet TAKE 2 TABLETS BY MOUTH TODAY, THEN TAKE 1 TABLET DAILY FOR 4 DAYS DIRECTED active Not Available Not Available No t Available sulfamethoxa zole 400 mg-trimethop rim 80 mg tablet TAKE 2 TABLETS BY MOUTH EVERY 12 HOURS FOR 5 DAYS active Not Available Not Available N ot Available citalopram 10 mg tablet TAKE 1 TABLET BY MOUTH EVERY DAY IN THE EVENING active Not Available Not Available No t Available ondansetron HCl 4 mg tablet TAKE 1 TABLET BY MOUTH 2 TIMES A DAY NEEDED FOR NAUSEA. active Not Available Not Available Not Available prednisone 20 mg tablet TAKE 2 TABLETS BY MOUTH ONCE DAILY FOR 5 DAYS active Not Available Not Available No t Available alendronate 70 mg tablet PLEASE SEE ATTACHED FOR DETAILED DIRECTIONS active Not Available Not Available N ot Available sulfamethoxa zole 800 mg-trimethop rim 160 mg tablet TAKE 1 TABLET BY MOUTH EVERY 12 HOURS FOR 5 DAYS active Not Available Not Available N ot Available tramadol 50 mg tablet TAKE 1 TABLET BY MOUTH EVERY 4 HOURS NEEDED FOR PAIN active Not Available Not Available No t Available lorazepam 0.5 mg tablet TAKE 1 TABLET BY ORAL ROUTE 2 TIMES PER DAY NEEDED active Not Available Not Available No t Available meclizine 25 mg tablet TAKE 1 TABLET BY MOUTH 2 TIMES A DAY NEEDED FOR DIZZINESS. active Not Available Not Available N ot Available cephalexin 500 mg capsule TAKE 1 CAPSULE BY MOUTH EVERY 12 HOURS FOR 7 DAYS active Not Available Not Available N ot Available simvastatin 20 mg tablet TAKE 1 TABLET BY MOUTH EVERY DAY IN THE EVENING active Not Available Not Available No t Available mupirocin 2 % topical ointment APPLY TWICE A DAY TO SURGICAL SITE FOR 14 DAYS DAYS OR UNTIL SITE FULLY HEALED COLOR PINK active Not Available Not Available N ot Available losartan 50 mg-hydrochlo rothiazide 12.5 mg tablet TAKE 1/2 TAB BY MOUTH EVERY DAY active Not Available Not Available No t Available ondansetron 4 mg disintegrati ng tablet TAKE 1 TABLET BY MOUTH EVERY 8 HOURS NEEDED FOR NAUSEA active Not Available Not Available No t Available doxycycline hyclate 100 mg tablet TAKE 1 TABLET (100 MG) BY ORAL ROUTE EVERY 12 HOURS FOR 5 DAYS active Not Available Not Available N ot Available Premarin 0.625 mg/gram vaginal cream APPLY 0.5 GRAM BY TOPICAL ROUTE ONCE DAILY CYCLICALLY, 3 WEEKS ON AND 1 WEEK OFF active Not Available Not Available No t Available nitrofuranto in monohydrate/ macrocrystal s 100 mg capsule TAKE 1 CAPSULE BY MOUTH EVERY 12 HOURS WITH FOOD FOR 7 DAYS active Not Available Not Available N ot Available Eliquis 2.5 mg tablet TAKE 1 TABLET BY MOUTH TWICE A DAY FOR BLOOD CLOT PREVENTION active Not Available Not Available N ot Available Vitals Date Recorded Body height Body mass index (BMI) Body weight Provider Name and Address Organization Details Last Updated DateTime 03/07/2024 175.26 cm 28.9 kg/m2 31664.1 g Cesar Wray [facility] 03/07/2024 15:26:03 Social History None recorded. Functional Status None recorded. Mental Status None recorded. Family History Nothing Reported. Medical History No medical history recorded. Gynecological HistoryNo gynecological history recorded. Obstetrics History GPAL:G 0 P 0 0 0 0 Past Encounters Encounter ID Performer Location Encounter Start Date Encounter Closed Date Diagnosis/Indication Diagnosis SNOMED-CT Code Diagnosis ICD10 Code Diagnosis Note [id number] GRAHAM JADE PA-C [facility] [address] [phone] 03/07/2024 15:17:04 03/07/2024 16:10:53 Recurrent acute sinusitis 426551664 J01.91 Health Concerns Section Related Observation LastModified by Organization Detai ls LastModified Time None Recorded Concern Status LastModified by Organization Details LastModified Time None Recorded Advance Directives Directive None Recorded Payers Encounter Date Sequence Insurance Name Policy Number Policy H[place]leston Covered Member ID Huddleston Member ID Guarantor Name 03/07/2024 1 MEDICARE B-[place]: [employer] Tori Noonan [id number] Tori Noonan 03/07/2024 2 [facility] INDEMNITY PLAN [facility] [id number] Zulema Noonan [id number] Tori Noonan Notes Date Note Type Note Provider Name and Address Organization Details Recorded Time 03/07/2024 text/html 68-year-old fema le presents for evaluation of the sinuses. Gets 2-3 sinus infections every year. Presents with facial pressure around the eyes, purulent nasal drainage, and hyposmia. Sometimes accompanied by ear infection. Goes to the doctor less than a week after symptoms start. A single round of antibiotics usually resolves the issue though she has required a second round at times or a course of prednisone. She does not perform sinus irrigations. No known environmental allergies. She does have ear pressure and discomfort on the right somewhat frequently. 30 years ago she had a myringotomy on that side and it has been more sensitive since that time. GRAHAM JADE PA-C [address] [place] [address], [phone], [facility] - [facility] 03/07/2024 16:17:03 OBGyn Episode No OBEpisode recorded.
== END 2024-05-06 10:03 | disposition home or self-care (01) ==
LOC: HO.LNP 10:02
PROVIDERS: PCP Internal Medicine; Visit Provider Internal Medicine
DX: R30.0 Dysuria (principal)
CPT/HCPCS: 81003; 87086; 99212

== ENCOUNTER 2024-06-14 15:10 | Outpatient (AMB) | payer MEDICARE, OTHER, SELFPAY ==
--- NOTE | 2024-06-14 16:05 | AM.OFFWIN_ITS ---
Intake Vital Signs 06/14/24 16:13 Weight 198 lb BP 148/90 H Blood Pressure Location Rt brachial Position Sitting Pulse 86 Pulse Source Pulse Oximeter Temp 98.1 F Temp Source Oral Pulse Oximetry (%) 98 Oxygen Delivery Method Room Air Intake Visit Reasons: EP sinus infection? Intake Note: Patient here for headache,eye pressure, sinus pressure and right ear pain. Patient Tobacco Use Status: Never used Tobacco Allergies gabapentin Allergy (Unknown, Verified 06/14/24 16:14) insomnia amoxicillin [Augmentin] Adverse Reaction (Unknown, Verified 06/14/24 16:14) rash clavulanic acid [Augmentin] Adverse Reaction (Unknown, Verified 06/14/24 16:14) rash nitrofurantoin Adverse Reaction (Verified 06/14/24 16:14) eye swells Erythromycin Adverse Reaction (Unknown, Uncoded 06/14/24 16:14) nausea and vomiting keflex Adverse Reaction (Uncoded 06/14/24 16:14) eye itchy Do you need a note to return to daycare/school/sports/work: No HPI HPI Comments History of Present Illness Details This is a 68-year-old female with a past medical history of hypertension, thrombocytopenia and hyperlipidemia presenting for evaluation of sinus pain, pressure and right upper dental pain that she has had for the past 1 week. Patient denies having fevers but has had chills. She has been taking Tylenol only without relief for discomfort. Of note, patient was diagnosed with COVID-19 approximately 1 month ago. [facility] Social History Patient Tobacco Use Status: Never used Tobacco Review of Systems Const All systems reviewed & are unremarkable except as noted in HPI and below Reports chills, Reports fatigue, Denies fever(s) and Reports headache(s) Eyes Reports no additional complaints ENT Reports otalgia (right), Reports headache(s), Reports sinus pain, Reports sinus pressure, Denies sore throat and Reports other (right upper dental pain) Card Reports no additional complaints and Denies dyspnea Resp Reports no additional complaints, Denies cough and Denies dyspnea GI Reports as per HPI Reports no additional complaints Skin/Breast Reports system reviewed and no additional complaints, except as documented Neuro Reports no additional complaints and Reports headache(s) Psych Reports no additional complaints Endo Reports no additional complaints and Reports fatigue Aller/Immun Reports no additional complaints Physical Exam Vital Signs: Last Vital Signs Temp 98.1 F 06/14/24 16:13 Pulse 86 06/14/24 16:13 BP 148/90 H 06/14/24 16:13 Pulse Ox 98 06/14/24 16:13 Oxygen Delivery Method Room Air 06/14/24 16:13 Const General: cooperative, comfortable, well developed, alert, awake and Physically active; No lethargic Nutritional Appearance: average body habitus Orientation/consciousness: patient oriented x3 and No lethargic Limitations: no limitations HEENT Head: Yes normal to inspection and Yes normocephalic Ears: hearing grossly normal bilaterally, external ears normal, right TM abnormal (bulging, mild erythema), TM normal on the left and EAC's normal General nose exam: Normal external nose present Face and sinus: No erythema and Yes sinus tenderness Mouth: Normal oral and palatal mucosa present and moist mucous membranes Teeth and gingiva: dentition normal Throat: Yes posterior oropharynx normal Eyes General: appearance normal, both eyes and all related structures Resp Effort & Inspection: normal respiratory effort Auscultation: clear to auscultation bilaterally Cardio Rate: regular rate Rhythm: regular rhythm Skin General skin exam: no rashes or lesions noted Neuro General: patient oriented x3 Psych Appearance: grossly normal Mental Status: mental status grossly normal Insight: Good insight present (Psych) Judgement: Good judgement present (Psych) Assessment & Plan Assessment & Plan (1) Acute bacterial sinusitis: Comment: Patient's history coupled with her physical examination is consistent with a bacterial sinusitis. Patient will be discharged with antibiotic therapy. Code(s): J01.90 - Acute sinusitis, unspecified; B96.89 - Other specified bacterial agents as the cause of diseases classified elsewhere Plan: Doxycycline b.i.d. x7 days. Medications: New doxycycline hyclate 100 mg PO BID 14 caps 0RF Coding Level of Care Code Est Pt Level 3 (80655) Diagnoses Acute bacterial sinusitis J01.90; B96.89 Time Spent (min) 20
[2024-06-14 16:13] VITALS: BP 148/90; PULSE 86; TEMP 36.7; O2SAT 98
--- OUTSIDE RECORDS SUMMARY | 2024-06-14 19:12 | XMS_ITS | Data Portability ---
Author Organization [place] [facility] Catia Alaniz [facility] [place] Address [address] [place] [address] Care Team Providers Care Parachutist/Combatant Diver Qualified Name Role Phone ALEJANDRA KHOURY Primary Care Provider [phone] ALEJANDRA KHOURY Primary Care Provider [phone] Assessment Encounter Date Assessment Date Assessment LastModified [...] Imaging XR, knee, 4 or more view 2023 024 [email or web address] 2 [facility], [address], [address], [place], [address], 4 11:34:21 XR, knee, 4 or more view 2023 024 [email or web address] 2 [facility], [address], [address], [place], [address], 4 11:34:21 XR, knee, 4 or more view 2022 023 [facility], [address], [address], [place], [address], 3 12:06:13 XR, knee, 4 or more view 2022 023 [facility], [address], [place], [address], 3 12:06:13 Medication Orders Kenalog 40 mg/mL suspension for injection 2023 024 [email or web address] Not available 4 11:26:11 lidocaine (PF) 10 mg/mL (1 %) injection solution 2023 024 [email or web address] Not available 4 11:26:11 Kenalog 40 mg/mL suspension for injection 2023 024 [email or web address] Not available 4 11:26:10 lidocaine (PF) 10 mg/mL (1 %) injection solution 2023 024 [email or web address] Not available 4 11:26:10 Kenalog 40 mg/mL suspension for injection 2022 023 [facility], [address] [place], [address], 3 12:06:13 lidocaine (PF) 10 mg/mL (1 %) injection solution 2022 023 [facility], [address] [place], [place], [address], 3 12:06:13 Kenalog 40 mg/mL suspension for injection 2022 023 [facility], [address] [place], [place], [address], 3 12:06:13 lidocaine (PF) 10 mg/mL (1 %) injection solution 2022 023 [facility], [address] [place], [address], 3 12:06:13 Kenalog 40 mg/mL suspension for injection 2022 023 [address] [place], [address], 3 16:22:53 lidocaine (PF) 10 mg/mL (1 %) injection solution 2022 023 [address] [place], [address], 16:22:54 Kenalog 40 mg/mL suspension for injection 2022 023 [address] [place], [address], 3 16:22:53 lidocaine (PF) 10 mg/mL (1 %) injection solution 2022 023 [address], [address] [place] [address], [address], 16:22:54 Patient TargetsNo targets recorded. Patient Instructions Encounter Date Encounter Id Patient Instructions Last Modified By Organization Details Last Modified Time 09/05/2022 [id number] You have been provided with a cortisone [...] portal JESSICA. Not available 09/05/2022 10:35:22 01/28/2023 [id number] You have been provided with a cortisone [...] bony abnormality. Not available 01/29/2023 08:10:15 05/06/2023 [id number] You have been provided with a cortisone [...] bony abnormality. Not available 05/06/2023 10:46:13 09/17/2023 [id number] {{2 3 4 5 6 7 8* [...] Recorded Time Pain of right knee joint 1581829647132 00 Active 2023 AMANDEEP SHAW PA-C [address], [place], [address], [place] [facility] 4 10:29:48 Pain of left knee joint 1126197919760 07 Active 2023 AMANDEEP SHAW PA-C [address], [place], [address], [place] [facility] 4 10:29:48 Osteoarthri tis of right knee joint 1791724790373 00 Active 2022 AMANDEEP SHAW PA-C [address], [place], [address], [place] [facility] 3 10:34:27 Osteoarthri tis of left knee joint 2900474395937 09 Active 2022 AMANDEEP SHAW PA-C [address], [place], [address], [place] [facility], [facility] 3 10:34:34 Problem Notes None recorded. Procedures Surgical History Date Name Laterality Status Provider Name and Address Organization Details Recorded Time 024 Knee Joint/Bursa Asp & Inj completed AMANDEEP SHAW PA-C [address], [place], [address], [place] [facility] 05/06/2023 10:30:02 023 Knee Joint/Bursa Asp & Inj completed AMANDEEP SHAW PA-C [address], [place], [address], [place] [facility] 01/28/2023 14:00:20 023 Knee Joint/Bursa Asp & Inj completed AMANDEEP SHAW PA-C [address], [place], [address], [place] [facility] 09/05/2022 07:41:48 cholecystectomy completed Danielle Ramírez [place] [facility] 09/05/2022 10:15:43 Hernia Repair completed Danielle Ramírez [place] [facility] P 09/05/2022 10:15:59 Imaging Results None recorded. [...] Updated DateTime 09/05/2022 175.26 cm 30.6 kg/m2 87279.62 g Danielle Ramírez [facility] 09/05/2022 10:14:04 Date Recorded Body height Provider Name an d Address Organization Details Last Updated DateTime 01/28/2023 175.26 cm Senia Wilkins [facility] 01/28/2023 16:23:24 Social History Question Answer Notes LastModified by Organizat ion Details LastModified Time Tobacco Smoking Status Former Smoker Danielle Ramírez null, [facility] 09/05/2022 10:14:41 What Is Your [...] SNOMED-CT Code Diagnosis ICD10 Code Diagnosis Note [id number] MD SWETHA Mariscaledda [address] [address] 09/05/2022 10:04:15 09/05/2022 10:29:30 Osteoarthritis of right knee joint 9529760543 16255 M17.11 Osteoarthr itis of left knee joint 5752423881 86731 M17.12 [id number] MD SWETHA Mariscal 299 [facility] [address] [place] [address] 01/28/2023 13:27:47 01/28/2023 14:15:05 Pain of right knee joint 9815467404 01097 M25.561 Pain of le ft knee joint 5344752189 19749 M25.562 Osteoarthr itis of left knee joint 6265251029 82952 M17.12 Osteoarthr itis of right knee joint 8567497789 10121 M17.11 [id number] MD SWETHA Mariscaledda [place] 299 [facility] [address] [place] [address] 05/06/2023 10:14:49 05/06/2023 10:45:27 Osteoarthritis of left knee joint 7226608291 94663 M17.12 Pain of ri ght knee joint 9243193034 55966 M25.561 Pain of le ft knee joint 2311692707 57485 M25.562 Osteoarthr itis of right knee joint 1857481565 30728 M17.11 [id number] MD SWETHA Mariscal 299 [facility] [address] [place] [address] 09/17/2023 10:54:23 09/17/2023 11:34:21 Osteoarthritis of right knee joint 9697189023 08511 M17.11 Osteoarthr itis of left knee joint 5978113274 51396 M17.12 Health Concerns Section Related Observation LastModified by Organization Detai ls LastModified Time None Recorded Concern Status LastModified by Organization Details LastModified Time None Recorded Advance Directives Directive None Recorded Payers Encounter Date Sequence Insurance Name Policy Number Policy Huddleston Covered Member ID Huddleston Member ID Guarantor Name 09/05/2022 1 [facility] [id number] Tori Noonan [id number] Tori Noonan 01/28/2023 1 MEDICARE B-[place]: [facility] Tori Noonan [id number] oTri Noonan 01/28/2023 2 [facility] [id number] Zulema Noonan [id number] Tori Noonan 05/06/2023 1 MEDICARE [place]: [facility] [employer] Tori Noonan [id number] Tori Noonan 05/06/2023 2 [facility] [id number] Zulema Noonan [id number] Tori Noonan Notes Date Note Type Note [...] change in history. AMANDEEP SHAW PA-C [address] [facility],[address], [place], [address], [place] [facility] 09/05/2022 10:35:53 01/28/2023 text/html HPI:Patient stat [...] AMANDEEP SHAW PA-C [address], [place], [address], [place] [facility] 01/29/2023 08:11:30 05/06/2023 text/html Pleasant 67-year -old female degenerative joint disease of both knees had cortisone injections last on 01/28/2023 which gave good relief up until recently. She is not interested in surgery here for follow-up eval with possible cortisone injections per request of patient. She recently underwent right total hip arthroplasty in [place] by Dr. Oh on 03/25/2023 for which she is doing well she is cleared to have her cortisone injections by her surgeon. AMANDEEP SHAW PA-C [address] [facility] [address], [place], [address], [facility] - [facility] 05/06/2023 10:46:42 09/17/2023 text/html 68-year-old fema [...] knees right now. AMANDEEP MARTIN PA-C [address] [facility] [address], [place], [address], [place] [facility] 09/17/2023 11:20:27 OBGyn Episode No OBEpisode recorded.
--- OUTSIDE RECORDS SUMMARY | 2024-06-14 19:12 | XMS_ITS | Clinical Summary ---
Author Organization [address] Address [address] [place] [address] Phone Care Team Providers Care Seo Assistant Name Role Phone Ann Marie Koehler MD Primary Care Provider [phone] Allergies No known active allergies Social History [...] Series) 06/17/2007 Osteoporosis screening (bone density) 2022 Pneumococcal Vaccine (50+ years) (2 of 2 - PCV) 2022 02/21/2019 [...] 136 - 145 mmol/L 12/11/2023 2:24 PM [facility] Potassium 3.6 3.5 - 5.1 mmol/L 12/11/2023 2:24 PM [facility] Chloride 105 98 - 107 mmol/L 12/11/2023 2:24 PM [facility] CO2 23 21 - 32 mmol/L 12/11/2023 2:24 PM [facility] Anion Gap 9 5 - 15 mmol/L 12/11/2023 2:24 PM [facility] Glucose 108 65 - 110 mg/dL 12/11/2023 2:24 PM [facility] Comment: Non-fasting: ??65-110 mg/dL Fasting (minimum 6 hrs): ??65-99 mg/dL BUN 25(H) 7 - 18 mg/dL 12/11/2023 2:24 PM [facility] Creatinine 0.69 0.55 - 1.02 mg/dL 12/11/2023 2:24 PM [facility] Calcium 9.4 8.5 - 10.1 mg/dL 12/11/2023 2:24 PM [facility] Total Protein 7.6 6.4 - 8.2 g/dL 12/11/2023 2:24 PM [facility] Albumin 4.3 3.4 - 5.0 g/dL 12/11/2023 2:24 PM [facility] Globulin 3.3 2.5 - 5.0 g/dL 12/11/2023 2:24 PM [facility] Total Bilirubin 0.8 0.2 - 1.0 mg/dL 12/11/2023 2:24 PM [facility] Comment:Use of this assay is not recommended for patients undergoing treatment with Eltrombopag due to the potential for falsely elevated results. Alkaline Phosphatase 61 45 - 117 U/L 12/11/2023 2:24 PM [facility] Alanine Aminotransferase (ALT) 28 12 - 78 U/L 12/11/2023 2:24 PM [facility] Aspartate Aminotransferase (AST) 24 15 - 37 U/L 12/11/2023 2:24 PM [facility] eGFR (Creatinine) >60 >=60 mL/min/1. 73m2 12/11/2023 2:24 PM [facility] Comment: [facility] utilizes CKD-EPI Creatinine 2020 to report eGFR. Values < 60 mL/min/1.73 m2 may indicate CKD if present for more than three months AND creatinine is at steady state. The eGFR provides a rough estimate of kidney function. For further guidance, please refer to the CKD: Adult Truss Maker Signature pathway. Blood Venipuncture / Unknown 12/11/2023 1:49 PM EDT 12/11/2023 1:56 PM EDT us Sam [facility] LAB BLOOD ORDERABLES [place] [address], [facility] [phone] from Last 3 Months or Most Recently Relevant to Health Maintenance Insurance MEDICARE COMMERCIAL GENERIC MEDICARE COMMERCIAL GENERIC MEDICARE COMMERCIAL GENERIC Care Teams Seo Assistant Relationship Specialty Start Date End Date Ann Marie Koehler MD [facility] [place] [address] PCP - General Internal Medicine 12/11/23
--- OUTSIDE RECORDS SUMMARY | 2024-06-14 19:12 | XMS_ITS | Data Portability ---
Author Organization [place] [facility] Address [address] [address] Care Team Providers Care Aircraft Launch And Recovery Technician Name Role Phone REJI IGLESIASANNE Primary Care Provider Assessment Encounter Date Assessment Date Assessment LastModified by Organization Details LastModified Time 03/07/2024 03/07/2024 68-year-old female presents for evaluation of sinuses, reporting 2-3 infections per year. Currently asymptomatic. Physical exam unrevealing. Today we reviewed that most sinus infections are actually viral in origin. Recommend that when she becomes symptomatic, she initiate distilled saline irrigations and fluticasone nasal spray. Mikey Med c developer provided today. We discussed she may benefit [...] Organization Details Recorded Time Recurrent acute sinusitis [id number] Active Filemon JADE PA-C 100 [facility] [address], [place], [address], [place] [facility] [...] Updated DateTime 03/07/2024 175.26 cm 28.9 kg/m2 36886.1 g Cesar Wray [facility] [...] SNOMED-CT Code Diagnosis ICD10 Code Diagnosis Note [id number] GRAHAM JADE PA-C [facility] [address] [address] 03/07/2024 15:17:04 03/07/2024 16:10:53 Recurrent acute sinusitis 111568093 J01.91 Health Concerns Section Related Observation LastModified by Organization Detai ls LastModified Time None Recorded Concern Status LastModified by Organization Details LastModified Time None Recorded Advance Directives Directive None Recorded Payers Encounter Date Sequence Insurance Name Policy Number Policy Huddleston Covered Member ID Huddleston Member ID Guarantor Name 03/07/2024 1 [place]: [employer] Tori Noonan [id number] Tori Noonan 03/07/2024 2 [facility] INDEMNITY PLAN [facility] [id number] Zulema Noonan [id number] Tori Noonan Notes Date Note Type Note [...] sensitive since that time. GRAHAM JADE PA-C [address] [place] [address], [address], [facility] - [facility] 03/07/2024 16:17:03 OBGyn Episode No OBEpisode recorded.
--- OUTSIDE RECORDS SUMMARY | 2024-06-14 19:12 | XMS_ITS | Clinical Summary ---
Author Organization [facility] Address [address] [place] [address] Care Team Providers Care Bid Clerk Name Role Phone Vanessa Escobar DO Primary Care Provider [phone] Allergies Active Allergy Reactions Criticality Noted Date [...] 2 Refills, Maintenance, 04/19/20 15:36:00 EST, Solution, [facility], 175, cm, 04/17/20 10:36:00 [...] Group Subscriber ID Effective Dates Phone Address [facility] [id number] 2018-Present [address] [facility] [address] [place] [address] HMO Care Teams Bid Clerk Relationship Specialty Start Date End Date Vanessa Escobar DO PCP - General Family Medicine 02/03/18
== END 2024-06-14 16:38 | disposition home or self-care (01) ==
PROVIDERS: PCP Internal Medicine; Visit Provider Physician Assistant
DX: J01.90 Acute sinusitis, unspecified (principal); B96.89 Other specified bacterial agents as the cause of diseases classified elsewhere

== ENCOUNTER → 2024-06-14 15:10 | Outpatient (BNVA) | payer MEDICARE, OTHER, SELFPAY | PROVIDERS: PCP Internal Medicine; Visit Provider Physician Assistant | DX: J01.90 Acute sinusitis, unspecified (principal); B96.89 Other specified bacterial agents as the cause of diseases classified elsewhere | CPT/HCPCS: 99212 ==

== ENCOUNTER 2024-07-25 09:10 | Outpatient (AMB) | payer MEDICARE, OTHER, SELFPAY ==
--- NOTE | 2024-07-25 09:34 | AM.OFFWIN_ITS ---
Intake Vital Signs 3 07/25/24 09:35 Height 5 ft 9 in Weight 200 lb BMI 29.5 BP 130/80 Blood Pressure Location Rt brachial Position Sitting Pulse 76 Pulse Source Pulse Oximeter Pulse Oximetry (%) 98 Oxygen Delivery Method Room Air Intake Visit Reasons: EP Fall, head pain, not symptomatic Intake Note: Patient here for head pain, nausea and slight dizziness after a fall yesterday and fell forward into a book case Patient Tobacco Use Status: Never used Tobacco Allergies gabapentin Allergy (Unknown, Verified 07/25/24 09:36) insomnia amoxicillin [Augmentin] Adverse Reaction (Unknown, Verified 07/25/24 09:36) rash clavulanic acid [Augmentin] Adverse Reaction (Unknown, Verified 07/25/24 09:36) rash nitrofurantoin Adverse Reaction (Verified 07/25/24 09:36) eye swells Erythromycin Adverse Reaction (Unknown, Uncoded 07/25/24 09:36) nausea and vomiting keflex Adverse Reaction (Uncoded 07/25/24 09:36) eye itchy HPI HPI Comments 2 History of Present Illness0 Details 69 y/o Female patient who presents to [facility] walk in clinic with c/o headaches, nausea and slight dizziness after a fall yesterday and fell forward into a book case. Denies Nausea or vomiting. She does endorse Light and sound sensitivity. [facility] Medical History (Updated 07/25/24 @ 10:29 by Edna Nielson NP) Generalized headaches Social History Patient Tobacco Use Status: Never used Tobacco Review of Systems Const All systems reviewed & are unremarkable except as noted in HPI and below Physical Exam Vital Signs: Last Vital Signs Pulse 76 07/25/24 09:35 BP 130/80 07/25/24 09:35 Pulse Ox 98 07/25/24 09:35 Oxygen Delivery Method Room Air 07/25/24 09:35 BMI result Body Mass Index 29.5 Const General: no acute distress; No comfortable Nutritional Appearance: overweight Orientation/consciousness: patient oriented x3 HEENT Head images: 2 1. Medium size Purplish/Black Bruise, TTP Ears: external ears normal and TM's normal bilaterally General nose exam: No nasal discharge present and no epistaxis Face and sinus: Yes sinuses nontender and Yes ecchymosis (Left side temporal region) Mouth: tongue normal and moist mucous membranes Neuro General: patient oriented x3, gait normal and moves all extremities Psych Speech and movement: Normal speech and movement present Assessment & Plan Assessment & Plan (1) Generalized headaches: Code(s): R51.9 - Headache, unspecified Plan: DDx's: Concussion vs Brain Bleed Advised to go to Emergency room further evaluation and treatment. Coding Level of Care Code Est Pt Level 5 (59657) Diagnoses Generalized headaches R51.9 Time Spent (min) 20
[2024-07-25 09:35] VITALS: BP 130/80; PULSE 76; O2SAT 98; BMI 29.5
--- OUTSIDE RECORDS SUMMARY | 2024-07-25 10:05 | XMS_ITS | Data Portability ---
Author Organization [place] [facility] Catia Alaniz [place] Address [address] [place] [address] Care Team Providers Care Tool Room Lathe Operator Name Role Phone ALEJANDRA KHOURY Primary Care Provider [phone] ALEJANDRA KHOURY Primary Care Provider Assessment Encounter Date Assessment [...] view 2023 024 [email or web address] 2 [facility], [address], [place], [address], 4 11:34:21 XR, knee, 4 or more view 2023 024 [email or web address] 2 [facility], [address], [place], [address], 4 11:34:21 XR, knee, 4 or more view 2022 023 [facility], [address], [place], [address], 3 12:06:13 XR, knee, 4 or more view 2022 023 [facility], [address], [place], [address], 3 12:06:13 Medication Orders Kenalog 40 mg/mL [...] injection 2022 023 atz [facility], [address] [place], [address], 3 12:06:13 lidocaine (PF) 10 mg/mL (1 %) injection solution 2022 023 atz [facility], [address], [place], [address], 3 12:06:13 Kenalog 40 mg/mL suspension for injection 2022 023 atz [facility], [address], [place], [address], 3 12:06:13 lidocaine (PF) 10 mg/mL (1 %) injection solution 2022 023 atz [facility], [address] [place], [address], 3 12:06:13 Kenalog 40 mg/mL suspension for injection 2022 023 [address] [place], [address], 3 16:22:53 lidocaine (PF) 10 mg/mL (1 %) injection solution 2022 023 [address] [place], [address], 16:22:54 Kenalog 40 mg/mL suspension for injection 2022 023 [address] [place], [address], 3 16:22:53 lidocaine (PF) 10 mg/mL (1 %) injection solution 2022 023 [address], [address] [place] [address], [address], 16:22:54 Patient TargetsNo targets recorded. Patient Instructions Encounter Date Encounter Id Patient Instructions Last Modified By Organization Details Last Modified Time 09/05/2022 [id number] You have been provided with a cortisone [...] portal JESSICA. Not available 09/05/2022 10:35:22 01/28/2023 [id number] You have been provided with a cortisone [...] bony abnormality. Not available 01/29/2023 08:10:15 05/06/2023 [id number] You have been provided with a cortisone [...] bony abnormality. Not available 05/06/2023 10:46:13 09/17/2023 [id number] {{2 3 4 5 6 7 8* [...] Recorded Time Pain of right knee joint 8875466687136 00 Active 2023 AMANDEEP SHAW PA-C [address], [place], [address], [place] [facility] 4 10:29:48 Pain of left knee joint 4389193499013 07 Active 2023 AMANDEEP SHAW PA-C [address], [place], [address], [place] [facility] 4 10:29:48 Osteoarthri tis of right knee joint 8970895838454 00 Active 2022 AMANDEEP SHAW PA-C [address], [place], [address], [place] [facility] 3 10:34:27 Osteoarthri tis of left knee joint 0428577122454 09 Active 2022 AMANDEEP SHAW PA-C [address], [place], [address], [place] [facility] 3 10:34:34 Problem Notes None recorded. Procedures Surgical History Date Name Laterality Status Provider Name and Address Organization Details Recorded Time 024 Knee Joint/Bursa Asp & Inj completed AMANDEEP SHAW PA-C [address], [place], [address], [place] [facility] 05/06/2023 10:30:02 023 Knee Joint/Bursa Asp & Inj completed AMANDEEP SHAW PA-C [address], [place], [address], [place] [facility] 01/28/2023 14:00:20 023 Knee Joint/Bursa Asp & Inj completed AMANDEEP SHAW PA-C [address], [place], [address], [place] [facility] 09/05/2022 07:41:48 cholecystectomy completed Danielle Ramírez [place] [facility], P 09/05/2022 10:15:43 Hernia Repair completed Danielle Ramírez [place] [facility] P 09/05/2022 10:15:59 Imaging Results None recorded. [...] Updated DateTime 09/05/2022 175.26 cm 30.6 kg/m2 75407.[address] [facility], P 09/05/2022 10:14:04 Date Recorded Body height Provider Name an d Address Organization Details Last Updated DateTime 01/28/2023 175[address] [facility], [facility] 01/28/2023 16:23:24 Social History Question Answer Notes LastModified by Organizat ion Details LastModified Time Tobacco Smoking Status Former Smoker Danielle Ramírez null, [facility] 09/05/2022 10:14:41 What Is Your [...] SNOMED-CT Code Diagnosis ICD10 Code Diagnosis Note [id number] MD SWETHA Mariscaledda [address] [address] 09/05/2022 10:04:15 09/05/2022 10:29:30 Osteoarthritis of right knee joint 1980362253 33908 M17.11 Osteoarthr itis of left knee joint 0522240593 53676 M17.12 [id number] MD SWETHA Mariscal [address] [facility] [address] [place] [address] 01/28/2023 13:27:47 01/28/2023 14:15:05 Pain of right knee joint 1968321094 60083 M25.561 Pain of le ft knee joint 8158334676 44296 M25.562 Osteoarthr itis of left knee joint 6471265286 46624 M17.12 Osteoarthr itis of right knee joint 2975633091 90627 M17.11 [id number] MD SWETHA Mariscal [address] [facility] [address] [place] [address] 05/06/2023 10:14:49 05/06/2023 10:45:27 Osteoarthritis of left knee joint 2081196746 78204 M17.12 Pain of ri ght knee joint 9129783678 85858 M25.561 Pain of le ft knee joint 3374032293 70862 M25.562 Osteoarthr itis of right knee joint 8616148478 93597 M17.11 [id number] MD SWETHA Mariscal [address] [facility] [address] [place] [address] 09/17/2023 10:54:23 09/17/2023 11:34:21 Osteoarthritis of right knee joint 2140781096 84564 M17.11 Osteoarthr itis of left knee joint 4501236519 58468 M17.12 Health Concerns Section Related Observation LastModified by Organization Detai ls LastModified Time None Recorded Concern Status LastModified by Organization Details LastModified Time None Recorded Advance Directives Directive None Recorded Payers Encounter Date Sequence Insurance Name Policy Number Policy Huddleston Covered Member ID Huddleston Member ID Guarantor Name 09/05/[address] [place] [address] [id number] Tori Noonan [id number] Tori Noonan 01/28/2023 1 [place] [facility] Tori Noonan [id number] Tori Noonan 01/28/2023 2 [employer] [facility] [id number] Zulema Noonan [id number] Tori Noonan 05/06/2023 1 [place] [employer] [place] Tori Noonan [id number] Tori Noonan 05/06/2023 2 [facility] [id number] Zulema Noonan [id number] Tori Noonan Notes Date Note Type Note [...] change in history. AMANDEEP SHAW PA-C [address] [facility],[address], [place], [address], [place] [facility], [facility] 09/05/2022 10:35:53 01/28/2023 text/html HPI:Patient stat [...] acute bony abnormality. AMANDEEP SHAW PA-C [address] [facility],[address], [place], [address], [place] [facility] 01/29/2023 08:11:30 05/06/2023 text/html Pleasant 67-year -old female degenerative joint disease of both knees had cortisone injections last on 01/28/2023 which gave good relief up until recently. She is not interested in surgery here for follow-up eval with possible cortisone injections per request of patient. She recently underwent right total hip arthroplasty in [place] by Dr. Oh on 03/25/2023 for which she is doing well she is cleared to have her cortisone injections by her surgeon. AMANDEEP SHAW PA-C [address] [facility],[address] [address], [place], [address], [facility] - [facility], P 05/06/2023 10:46:42 09/17/2023 text/html 68-year-old fema [...] knees right now. AMANDEEP MARTIN PA-C [address] [facility] [address], [place], [address], [facility] - [facility], P 09/17/2023 11:20:27 OBGyn Episode No OBEpisode recorded.
--- OUTSIDE RECORDS SUMMARY | 2024-07-25 10:05 | XMS_ITS | Encounter Summary ---
Author Organization [facility] Address [address] [place] [address] Care Team Providers Care Drawer In Name Role Phone Ford Lal NP Primary Care Provider [phone] Encounter Details Date Type Department Care Team (Late st Contact Info) Description 06/29/[address] [facility] - [facility] [address] [facility] [address] [place] [phone] Malina Gallo NP [address] [place] [address] Social History Tobacco Use Types Packs/Day Years Used Date Smoking Tobacco: Never Smokeless Tobacco: Never Alcohol Use Standard Drinks/Week Comments Yes 3 (1 standard drink = 0.6 oz pur e alcohol) Comments Unknown Sex and Gender Information Value Date Recorded Sex Assigned at Not on file Legal Sex Female 9:54 PM EST Gender Identity Not on file Sexual Orientation Not on file documented as of this encounter Progress Notes * Anabela Saavedra MA - 06/30/2024 4:04 PM EDT Called patient verbalized understanding of message given. * Malina Gallo NP - 06/29/2024 8:05 AM EDT Anabela, Can you pls let the pt know that her labs look much better on the atorvastatin? Thank you documented in this encounter Plan of Treatment Not on file documented as of this encounter Visit Diagnoses Not on filedocumented in this encounter Care Teams Drawer In Relationship Specialty Start Date End Date Ford Lal NP [facility] [address] [place] [address] PCP - General 09/15/23 documented as of this encounter
--- OUTSIDE RECORDS SUMMARY | 2024-07-25 10:05 | XMS_ITS | Data Portability ---
Author Organization [place] [facility] Address [address] [place] [address] Care Team Providers Care Legal Support Manager Name Role Phone TALHA IGLESIAS Primary Care Provider Assessment Encounter Date Assessment Date Assessment LastModified by Organization Details LastModified Time 03/07/2024 03/07/2024 68-year-old female presents for evaluation of sinuses, reporting 2-3 infections per year. Currently asymptomatic. Physical exam unrevealing. Today we reviewed that most sinus infections are actually viral in origin. Recommend that when she becomes symptomatic, she initiate distilled saline irrigations and fluticasone nasal spray. [facility] doctor provided today. We discussed she may benefit from utilizing the crossed hand application technique as she has a history convincing for eustachian tube dysfunction. All questions were answered. Patient to follow up as needed. Not available 03/07/2024 16:16:49 06/27/2024 06/27/2024 Patient presents for ear and sinus evaluation. Symptoms have resolved since making the appointment. Physical exam reveals dry nasal mucosa without evidence of purulent drainage. Otologic exam normal. Reassurance provided. Patient may follow-up as needed. Not available 06/27/2024 13:46:02 Plan of Treatment Reminders Order Date Submit [...] Organization Details Recorded Time Recurrent acute sinusitis 199177367 Active 024 GRAHAM JADE, PA-C [address] [facility],[address] [address], [place], [address], [facility] - [facility] 4 16:14:25 Problem Notes None recorded. Medical Equipment None Reported. Allergies Allergen ID Allergen Name Allergen Category Reaction Reaction Severity Criticality Documentation Date Start Date Code Code System Note Provider Name and Address Organization Details Recorded Time [id number] cephalexi n medicatio n angioedem a Not available Not available 06/27/2024 2231 RxNorm GRAHAMNils JADE, PA-C [address] [facility],[address], [place], [address], [facility] - [facility] 5 13:25:11 716507 nitrofura ntoin medicatio n Not available Not available Not available 06/27/2024 7454 RxNorm GRAHAMNils JADE, [email or web address] [address] [facility],[address] [address] [address], [place], [address], [facility] - [facility] 5 13:25:59 Medications Name Sig Start Date Stop Date Status Note LastModified by Organization Details LastModified Time amoxicillin 500 mg capsule TAKE 4 PILLS ONE HOUR PRIOR TO DENTAL WORK. active Not Available Not Available No t Available atorvastati n 40 mg tablet TAKE 1 TABLET BY MOUTH EVERY DAY active Not Available Not Available No t Available hydroxyurea 500 mg capsule TAKE 3 CAPSULES BY MOUTH DAILY ALTERNATI NG WITH 2 CAPSULES active Not Available Not Available No t Available doxycycline hyclate 100 mg capsule TAKE 1 CAPSULE BY MOUTH TWICE A DAY active Not Available Not Available No t Available ketoconazol e 2 % shampoo SHAMPOO EVERY OTHER DAY 3X WEEKLY. active Not Available Not Available No t Available azithromyci n 250 mg tablet TAKE 2 TABLETS BY MOUTH TODAY, THEN TAKE 1 TABLET DAILY FOR 4 DAYS DIRECTED 06/24 completed Not Available Not Available Not Available fluconazole 150 mg tablet TAKE ONE TABLET NOW. REPEAT DOSE IN 72 HOURS. active Not Available Not Available No t Available benzonatate 200 mg capsule TAKE 1 CAPSULE BY MOUTH 2-3 TIMES A DAY NEEDED FOR COUGH active Not Available Not Available No t Available sulfamethox azole 400 mg-trimetho prim 80 mg tablet TAKE 2 TABLETS BY MOUTH EVERY 12 HOURS FOR 5 DAYS 06/24 completed Not Available Not Available Not Available citalopram 10 mg tablet TAKE 1 TABLET BY MOUTH EVERY DAY IN THE EVENING 06/24 completed Not Available Not Available Not Available ondansetron HCl 4 mg tablet TAKE 1 TABLET BY MOUTH 2 TIMES A DAY NEEDED FOR NAUSEA. active Not Available Not Available No t Available prednisone 20 mg tablet TAKE 2 TABLETS BY MOUTH ONCE DAILY FOR 5 DAYS 06/24 completed Not Available Not Available Not Available alendronate 70 mg tablet TAKE 1 TABLET (70 MG TOTAL) BY MOUTH EVERY 7 DAYS active Not Available Not Available No t Available levofloxaci n 250 mg tablet TAKE 1 TABLET BY MOUTH EVERY DAY FOR 3 DAYS active Not Available Not Available No t Available sulfamethox azole 800 mg-trimetho prim 160 mg tablet TAKE 1 TABLET BY MOUTH EVERY 12 HOURS FOR 5 DAYS 06/24 completed Not Available Not Available Not Available tramadol 50 mg tablet TAKE 1 TABLET BY MOUTH EVERY 4 HOURS NEEDED FOR PAIN 06/24 completed Not Available Not Available Not Available lorazepam 0.5 mg tablet TAKE 1 TABLET BY ORAL ROUTE 2 TIMES PER DAY NEEDED active Not Available Not Available No t Available clindamycin 1 % topical gel APPLY TO AFFECTED AREA TWICE A DAY active Not Available Not Available No t Available meclizine 25 mg tablet TAKE 1 TABLET BY MOUTH 2 TIMES A DAY NEEDED FOR DIZZINESS . active Not Available Not Available No t Available cephalexin 500 mg capsule TAKE 1 CAPSULE BY MOUTH EVERY 12 HOURS FOR 7 DAYS 06/24 completed Not Available Not Available Not Available simvastatin 20 mg tablet TAKE 1 TABLET BY MOUTH EVERY DAY IN THE EVENING 06/24 completed Not Available Not Available Not Available mupirocin 2 % topical ointment APPLY TO THE SCALP ONCE DAILY 06/11 completed Not Available Not Available Not Available [...] ROUTE EVERY 12 HOURS FOR 5 DAYS 06/24 completed Not Available Not Available Not Available Premarin 0.625 mg/gram vaginal cream APPLY 0.5 GRAM BY TOPICAL ROUTE ONCE DAILY CYCLICALL Y, 3 WEEKS ON AND 1 WEEK OFF active Not Available Not Available No t Available escitalopra m 5 mg tablet TAKE 1 TABLET BY MOUTH EVERY DAY active Not Available Not Available No t Available nitrofurant oin monohydrate /macrocryst als 100 mg capsule TAKE 1 CAPSULE BY MOUTH EVERY 12 HOURS WITH FOOD FOR 7 DAYS 06/24 completed Not Available Not Available Not Available Eliquis 2.5 mg tablet TAKE 1 TABLET BY MOUTH TWICE A DAY FOR BLOOD CLOT PREVENTIO N 03/04 completed Not Available Not Available Not Available Vitals Date Recorded Body height Body mass index (BMI) Body weight Provider Name and Address Organization Details Last Updated DateTime 06/27/2024 173.99 cm 30 kg/m2 80974.47 g Raquel Haq [place] [facility] 06/27/2024 13:13:42 Date Recorded Body height Body mass index (BMI) Body weight Provider Name and Address Organization Details Last Updated DateTime 03/07/2024 175.26 cm 28.9 kg/m2 38874.1 g Cesar Lozano [place] [facility] 03/07/2024 15:26:03 Social History None recorded. Functional Status None recorded. Mental Status None recorded. Family History Nothing Reported. Medical History Condition Response Allergies/Hayfever N Heart Problems N Anxiety Y Tonsil Infections N Emphysema N Migraines N Thyroid Problems N Depression N COPD N Developmental Delay N Glaucoma N Nasal or Sinus Problems Y Anemia N Immune System Disorder N Anesthesia Complications N Heart Attack ([place]) N Other Skin Condition N Diabetes N Rhinitis N Bleeding Disorder N Food Allergy N Hearing Loss N Arthritis Y Hyperlipidemia N Cancer Y Stroke N Dementia N Nasal polyps N Asthma N Sleep Disorder N High Cholesterol Y GERD/Reflux N Liver Disease N Headaches N Fibromyalgia N Hypertension N Speech Delay N Kidney Disease N Gynecological HistoryNo gynecological history recorded. Obstetrics History GPAL:G 0 P 0 0 0 0 Past Encounters Encounter ID Performer Location Encounter Start Date Encounter Closed Date Diagnosis/Indication Diagnosis SNOMED-CT Code Diagnosis ICD10 Code Diagnosis Note [id number] GRAHAM JADE PA-C [facility] [address] [address] 03/07/2024 15:17:04 03/07/2024 16:10:53 Recurrent acute sinusitis 090552941 J01.91 [id number] ALLAN VEGA MD [facility] [address] [place] [address] 06/27/2024 12:52:36 06/27/2024 13:31:50 Recurrent acute sinusitis 065064173 J01.91 Health Concerns Section Related Observation LastModified by Organization Detai ls LastModified Time None Recorded Concern Status LastModified by Organization Details LastModified Time None Recorded Advance Directives Directive None Recorded Payers Encounter Date Sequence Insurance Name Policy Number Policy Huddleston Covered Member ID Huddleston Member ID Guarantor Name 03/07/2024 1 MEDICARE [facility] Tori Noonan [id number] Tori Noonan 03/07/2024 2 [facility] [id number] Zulema Watt Saran [id number] Tori Noonan 06/27/2024 1 [place] [facility] Tori Noonan [id number] Tori Saran 06/27/2024 2 [email or web address] [id number] Zulema Wisdomjoie [id number] Tori Saran Notes Date Note Type Note Provider Name and Address Organization Details Recorded Time 03/07/2024 text/html 68-year-old paula jaeger presents for evaluation of the sinuses. Gets [...] sensitive since that time. GRAHAM JADE PA-C [address] [facility],[address], [address], [facility] - [facility] 03/07/2024 16:17:03 06/27/2024 text/html 69 year old paula jaeger presents for evaluation of ears and sinuses. Reports she gets a sinus infection with otalgia 2-3 times per year. Just had this about 2 weeks ago. Frontal and occipital headache. Right maxillary distribution and right maxillary teeth as well. Green nasal discharge. Went to urgent care and was told the right eardrum was bulging. Was given 5 day azithromycin. Symptoms have now resolved. Reports a history of myringotomy 35 years ago on the right ear and states that ear acts up anytime she has sinus pressure. She uses [facility] doctor ALLAN BAKER MD [address] [place] [address], [address], [place] [facility] 06/27/2024 16:07:59 OBGyn Episode No OBEpisode recorded.
--- OUTSIDE RECORDS SUMMARY | 2024-07-25 10:05 | XMS_ITS | Clinical Summary ---
Author Organization [facility] Address [address] [place] [address] Care Team Providers Care Nuclear Design Engineer Name Role Phone Ford Lal NP Primary Care Provider [phone] Encounters Date Type Department Care Team Description 06/29/2024 Telephone [facility] [address] [facility] [address] [place] [address] Malina Gallo NP from Last 3 Months Immunizations Name Administration Dates Next Due Moderna SARS-CoV-2 COVID-19, mRNA, LNP-S, preservative free 05/27/2020 Surgical History Surgery Date Site/Laterality Comments HERNIA REPAIR PROCEDURE:HERNIA REPAIR HYSTERECTOMY PROCEDURE:HYSTERECTOMY OTHER SURGICAL HISTORY 03/2018 PROCEDURE:SI Joint injection COLONOSCOPY 2010 PROCEDURE:COLONOSCOPY FINE NEEDLE ASPIRATION 08/12/2018 PROCEDURE:FINE NEEDLE ASPIRATION Medical History Medical History Date Comments Clotting disorder (CMS/HCC V24) DX:Clotting disorder (HCC) Thrombocytopenia (CMS/HCC V24) D X:Thrombocytopenia (HCC);COMMENT: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 Screening for breast cancer DX:S creening for breast cancer;COMMENT:03/2015 normal, 11/2018 benign Screening for osteoporosis DX:Sc reening for osteoporosis;COMMENT:03/2018 Osteoporosis Hip -2.5 FRAX 30.8%/hip 2.7% ([place] 07/30- Pelvis ischium fracture ([facility] V24, [facility] V28) 04/2017 DX:Pelvis ischium fracture (HCC);COMMENT:02/2018: MRI-hip RT Nondisplaced fractures superolateral pubis/posterior lateral ischum Sacral insufficiency fracture 02/2018 DX :Sacral insufficiency fracture;COMMENT:RT Sacral fracture ([facility] V24 , [facility] V28) 01/2018 DX:Sacral fracture ([facility]);COMMENT:01/2018 Xray pelvic neg, 02/2018 LS -spine films normal, 03/2018 MRI Hip RT sacral Fx adj to sacroiliac jt Fatty liver DX:Fatty liver;C OMMENT:US: 05/2018 Fatty liver, LFT's normal, recheck 11/2018 Essential thrombocytopenia ( [facility] V24, [facility] V28) DX:Essential thrombocytopeni a (HCC);COMMENT:Hydroxyurea Osteoporosis 03/2018 DX:Osteoporosis; COMMENT:Fosamax (0812-6170 Gerd), Prolia (08/2018- Multinodular goiter 07/2018 DX:Multinodu lar goiter;COMMENT:FNA; nondiagnostic cytology of 2 Rt sided nodules repeat 10/2018 Thrombocythemia 06/2019 DX:Thrombocythem ia;COMMENT:plat 913k High blood pressure DX:High bloo d pressure Anxiety DX:Anxiety Lightheadedness DX:Lightheadedne ss Heel fracture DX:Heel fracture Osteoporosis DX:Osteoporosis Nodular thyroid disease DX:Nodul ar thyroid disease Pelvic fracture ([facility] V24 , [facility] V28) DX:Pelvic fracture (HCC) Family History Medical History Relation Name Comments Cancer Father Heart disease Father Cancer Mother lung Heart disease Mother Cancer Mother's Sister 1 breast Cancer Mother's Sister 2 breast Cancer Sister breast Relation Name Status Comments Cousin Alive Father Maternal Grandfather Maternal Grandmother Mother Mother's Sister 1 Mother's Sister 2 Paternal Grandfather Paternal Grandmother Sister Alive Social [...] on file Sexual Orientation Not on file Obstetrics History Last Filed Vital Signs Vital Sign Reading Time Taken Comments Blood Pressure 142/80 01/20/2024 3:09 PM EDT Sit ting L Arm Pulse 71 01/20/2024 3:09 PM EDT Temperature - - Respiratory Rate - - Oxygen Saturation - - Inhaled Oxygen Concentration - - Weight 90.7 kg (200 lb) 01/20/2024 3:09 PM EDT Height 175.3 cm (5' 9 ) 01/20/2024 3:09 PM EDT Body Mass Index 29.53 01/20/2024 3:09 PM EDT Plan of Treatment Health Maintenance Due Date Last Done Comments Breast Cancer Screening 1955 DTaP,Tdap,and Td Vaccines (1 - Tdap) 1976 Zoster Vaccines (1 of 2) 06/17/2007 Pneumococcal Vaccine: 50+ Ye ars (2 of 2 - PCV) 02/22/2020 02/21/2019 COVID-19 Vaccine (2 - Modern a risk series) 06/24/2020 05/27/2020 Cholesterol Screening (Lipid Panel) 03/15/2022 Colorectal Cancer Screening: Colonoscopy 03/15/2022 Depression Screening 03/15/2022 Hepatitis C Screening 03/15/2022 Osteoporosis Screening (Bone Density Screening) 03/15/2022 Social Influencers of Health Screening 03/15/2022 Falls Risk Assessment 2022 Hypertension/CHF/CAD Annual BMP Blood Test 01/20/2024 Influenza Vaccine (Season Ended) 2024 RSV Immunization Adult Patie nts (1 - 1-dose 75+ series) 2032 HIB Vaccines Aged Out No longer eligi ble based on patient's age to complete this topic HPV Vaccines Aged Out No longer eligi ble based on patient's age to complete this topic Hepatitis A Vaccines Aged Out No long er eligible based on patient's age to complete this topic Hepatitis B Vaccines Aged Out No long er eligible based on patient's age to complete this topic IPV Vaccines Aged Out No longer eligi ble based on patient's age to complete this topic MMR Vaccines Aged Out No longer eligi ble based on patient's age to complete this topic Meningococcal ACWY Vaccine Aged Out N o longer eligible based on patient's age to complete this topic Meningococcal B Vaccine Aged Out No l onger eligible based on patient's age to complete this topic RSV Immunization Patients Un laura 20 months Aged Out No longer eligible b ased on patient's age to complete this topic Varicella Vaccines Aged Out No longer eligible based on patient's age to complete this topic Care Teams Nuclear Design Engineer Relationship Specialty Start Date End Date Ford Lal NP [facility] [address] [place] [address] PCP - General 09/15/23
--- OUTSIDE RECORDS SUMMARY | 2024-07-25 10:05 | XMS_ITS | Clinical Summary ---
Author Organization [address] Address [address] [place] [phone] Phone Care Team Providers Care Independent Crop Consultant Name Role Phone Ann Marie Koehler MD Primary Care Provider [phone] Allergies No known active allergies Social History [...] Shingrix (RZV) 2 Dose Standard Series) 06/17/2007 Pneumococcal Vaccine (50+ years) (2 of 2 - PCV) 02/22/2020 02/21/2019 Osteoporosis screening (bone density) 2022 Covid-19 vaccine series (3 - 2023- season) 2023 06/24/2020, 05/27/2020 Influenza vaccine 12/12/2024 01/29/2012 Diabetes screening 12/10/2026 12/11/2023 RSV Immunization (1 - 1-dose 75+ series) 2032 Cervical [...] 136 - 145 mmol/L 12/11/2023 2:24 PM [facility] Potassium 3.6 3.5 - 5.1 mmol/L 12/11/2023 2:24 PM [facility] Chloride 105 98 - 107 mmol/L 12/11/2023 2:24 PM [facility] CO2 23 21 - 32 mmol/L 12/11/2023 2:24 PM [facility] Anion Gap 9 5 - 15 mmol/L 12/11/2023 2:24 PM [facility] Glucose 108 65 - 110 mg/dL 12/11/2023 2:24 PM [facility] Comment: Non-fasting: ??65-110 mg/dL Fasting (minimum 6 hrs): ??65-99 mg/dL BUN 25(H) 7 - 18 mg/dL 12/11/2023 2:24 PM [facility] Creatinine 0.69 0.55 - 1.02 mg/dL 12/11/2023 2:24 PM [facility] Calcium 9.4 8.5 - 10.1 mg/dL 12/11/2023 2:24 PM [facility] Total Protein 7.6 6.4 - 8.2 g/dL 12/11/2023 2:24 PM [facility] Albumin 4.3 3.4 - 5.0 g/dL 12/11/2023 2:24 PM [facility] Globulin 3.3 2.5 - 5.0 g/dL 12/11/2023 2:24 PM [facility] Total Bilirubin 0.8 0.2 - 1.0 mg/dL 12/11/2023 2:24 PM [facility] Comment:Use of this assay is not recommended for patients undergoing treatment with Eltrombopag due to the potential for falsely elevated results. Alkaline Phosphatase 61 45 - 117 U/L 12/11/2023 2:24 PM [facility] Alanine Aminotransferase (ALT) 28 12 - 78 U/L 12/11/2023 2:24 PM [facility] Aspartate Aminotransferase (AST) 24 15 - 37 U/L 12/11/2023 2:24 PM [facility] eGFR (Creatinine) >60 >=60 mL/min/1. 73m2 12/11/2023 2:24 PM [facility] Comment: [facility] utilizes CKD-EPI Creatinine 2020 to report eGFR. Values < 60 mL/min/1.73 m2 may indicate CKD if present for more than three months AND creatinine is at steady state. The eGFR provides a rough estimate of kidney function. For further guidance, please refer to the CKD: Adult Straightening Press Operator Helper Signature pathway. Blood Venipuncture / Unknown 12/11/2023 1:49 PM EDT 12/11/2023 1:56 PM EDT us Sam [facility] [place]OD [place] [address], [facility] [phone] from Last 3 Months or Most Recently Relevant to Health Maintenance Insurance MEDICARE COMMERCIAL GENERIC MEDICARE COMMERCIAL GENERIC MEDICARE COMMERCIAL GENERIC Care Teams Independent Crop Consultant Relationship Specialty Start Date End Date Ann Marie Koehler MD [facility] [place] [phone] PCP - General Internal Medicine 12/11/23
== END 2024-07-25 11:04 | disposition home or self-care (01) ==
PROVIDERS: PCP Internal Medicine; Visit Provider Nurse Practitioner Family
DX: R51.9 Headache, unspecified (principal)

== ENCOUNTER → 2024-07-25 09:10 | Outpatient (BNVA) | payer MEDICARE, OTHER, SELFPAY | PROVIDERS: PCP Internal Medicine; Visit Provider Nurse Practitioner Family | DX: R51.9 Headache, unspecified (principal) | CPT/HCPCS: 99212 ==